=== PATIENT | female | born 1980 | race Caucasian/White ===

== ENCOUNTER → 2023-01-28 09:24 | Outpatient (BNVA) | payer MEDICAID, SELFPAY | PROVIDERS: PCP Internal Medicine; Visit Provider Physician Assistant Surgical ==

== ENCOUNTER → 2023-02-03 08:02 | Outpatient (BNVA) | payer MEDICAID, SELFPAY | PROVIDERS: PCP Internal Medicine; Visit Provider Surgery ==

== ENCOUNTER → 2023-02-18 12:00 | Outpatient (BNVA) | payer OTHER, MEDICAID, SELFPAY | PROVIDERS: PCP Internal Medicine; Visit Provider Counselor Mental Health ==

== ENCOUNTER 2023-03-04 12:56 | Outpatient (REF) | payer MEDICAID, SELFPAY ==
--- NOTE | ~2023-03-04 | XR_ITS ---
EXAMINATION: XR CHEST CLINICAL INFORMATION: Obesity COMPARISON: None available. TECHNIQUE: 2 views of the chest were obtained. FINDINGS: No significant abnormality is noted involving the heart, lungs, mediastinum, bony thorax or soft tissues. XR/XR chest 2V IMPRESSION: No acute disease.
--- NOTE | 2023-03-04 13:15 | ECG_ITS ---
Test Reason : OBESITY Blood Pressure : / mmHG Vent. Rate : 069 BPM Atrial Rate : 069 BPM P-R Int : 180 ms QRS Dur : 086 ms QT Int : 430 ms P-R-T Axes : 052 015 010 degrees QTc Int : 460 ms Normal sinus rhythm Nonspecific ST and T wave abnormality Borderline ECG No previous ECGs available Referred By: Mohit Taylor Electronically Signed By:LEELA VOGEL
[2023-03-04 13:16] LABS: MANUAL DIFF FLAG NO
[2023-03-04 14:52] LABS: Basophils Percent Auto 0.4 % (0-2); Eosinophils Absolute Auto 0.2 X10*3/uL (0.0-0.4); Eosinophils Percent Auto 4.3 % (0-4); Hematocrit 41.2 % (37.0-47.0); Hemoglobin 12.5 g/dl (12.0-16.0); Imm Gran Abs Auto 0.01 X10*3/uL (0.00-0.03); Imm Gran Pct Auto 0.2 % (0.0-0.4); Lymphocytes Absolute Auto 1.6 X10*3/uL (1.2-4.9); Lymphocytes Percent Auto 29.4 % (20-40); Mean Corpuscular HGB Conc 30.3 g/dl (31.0-35.0); Mean Corpuscular Hemoglobin 26.1 pg (27.0-33.0); Mean Platelet Volume 10.9 fL (9.4-12.3); Monocytes Absolute Auto 0.4 X10*3/uL (0.1-1.2); Monocytes Percent Auto 8.1 % (2-11); Neutrophils Absolute Auto 3.1 x10*3/uL (2.0-8.3); Neutrophils Percent Auto 57.6 % (45-73); Platelet Count 167 X10*3/uL (160-400); Red Blood Count 4.79 X10*6/uL (4.20-5.50); Red Cell Distribution Width 12.8 % (11.0-16.0); White Blood Count 5.3 X10*3/uL (4.8-10.8)
[2023-03-04 16:01] LABS: Estimated Average Glucose 94 mg/dL; Hemoglobin A1c % 4.9 %
[2023-03-04 16:15] LABS: Alanine Aminotransferase 13 U/L (0-31); Albumin Level 3.9 g/dL (3.5-5.0); Alkaline Phosphatase 72 U/L (39-117); Anion Gap 9 (12-20); Aspartate Amino Transferase 16 U/L (5-31); Bilirubin Total 0.3 mg/dL (0.0-1.0); Blood Urea Nitrogen 13 mg/dL (9-16); C Reactive Protein 0.33 mg/dL (< or = 0.50); Calcium 8.7 mg/dL (8.4-10.2); Carbon Dioxide 29 mmol/L (22-29); Chloride 105 mmol/L (96-108); Cholesterol 169 mg/dL; Estimated Glomerular Filt Rate > 60; Glucose Random 83 mg/dL (60-115); HDL Cholesterol 49 mg/dL; Iron 60 mcg/dL (30-160); LDL Cholesterol Calculated 109 mg/dl; Percent Iron Saturation 19 % (15-50); Sodium 139 mmol/L (135-145); Total Iron Binding Capacity 310 mcg/dL (228-428); Total Protein 6.6 g/dL (6.5-8.0); Triglycerides 56 mg/dL; Unsaturated Iron Binding 250 ug/dL
[2023-03-04 16:25] LABS: Ferritin 48 ng/mL (10-250); Insulin 9 uU/mL (2-29); TSH reflex Free T4 1.66 uIU/mL (0.32-4.0); Vitamin D 25-OH Total 39.5 ng/mL (>30)
[2023-03-04 17:02] LABS: Folate 14.4 ng/mL (> or = 4.0); Vitamin B12 526 pg/mL (200-900)
[2023-03-08 14:32] LABS: Calcium (PTHI) 9.1 mg/dL (8.6-10.2); PTHI 56 pg/mL (16-77)
[2023-03-09 12:23] LABS: Zinc 63 mcg/dL (60-130)
[2023-03-09 21:24] LABS: Vitamin A 50 mcg/dL (38-98)
[2023-03-11 12:14] LABS: Vitamin B1 16 nmol/L (8-30)
== END 2023-03-04 12:57 | disposition home or self-care (01) ==
LOC: HO.LAB 12:56
PROVIDERS: PCP Internal Medicine; Visit Provider Surgery
DX: E66.9 Obesity, unspecified (principal); Z68.35 Body mass index [BMI] 35.0-35.9, adult; E78.5 Hyperlipidemia, unspecified; F31.9 Bipolar disorder, unspecified; I10 Essential (primary) hypertension
CPT/HCPCS: 36415; 71046; 80053; 80061; 82306; 82607; 82728; 82746; 83036; 83525; 83540; 83970; 84425; 84443; 84590; 84630; 85025; 86140; 93005; 99211

== ENCOUNTER 2023-03-04 18:42 | Outpatient (REF) | payer MEDICAID, SELFPAY ==
[2023-03-05 16:58] LABS: H Pylori Breath Test Negative (Negative)
== END 2023-03-04 18:43 | disposition home or self-care (01) ==
LOC: HO.LNP 18:42
PROVIDERS: Visit Provider Surgery
DX: E66.9 Obesity, unspecified (principal); Z68.35 Body mass index [BMI] 35.0-35.9, adult
CPT/HCPCS: 83013

== ENCOUNTER → 2023-03-12 11:36 | Outpatient (BNVA) | payer MEDICAID, SELFPAY | PROVIDERS: PCP Internal Medicine; Visit Provider Dietitian, Registered | DX: E66.9 Obesity, unspecified (principal); Z68.34 Body mass index [BMI] 34.0-34.9, adult | CPT/HCPCS: 97802 ==

== ENCOUNTER 2023-04-08 12:13 | Outpatient (AMB) | payer MEDICAID, SELFPAY ==
--- NOTE | 2023-04-08 11:35 | MHC.OFFVISWM ---
Intake VS Expanded 04/08/23 11:42 Height 5 ft 1.5 in Weight 182 lb BMI 33.8 Intake Visit Reasons: VIDEO f/u [facility] An Employee Sponsor Or Advocate And Required: No Allergies No Known Allergies Allergy (Verified 03/04/23 14:40) Medication List - Last Reconciled 04/08/23 by [facility] albuterol sulfate 90 mcg/actuation (Ventolin HFA) 2 puffs inhalation Q4-6H PRN citalopram 40 mg PO BEDTIME lamotrigine (Lamictal) 100 mg PO BID lisinopril 5 mg PO DAILY methadone 100 mg PO DAILY HPI HPI Comments History of Present Illness Details 42 yo female returns for f/u in [facility] pre-op clinic Initial weight on 02/03/23 was 189.8 with a BMI of 35.2 Weight today is 182 pounds with a BMI of 33.8 Weight loss of 7.8 pounds or 4 % TBWL. She feels she is doing ok. She is now used to the plan. Meal plan: 2 Isopure protein shakes (QUARTER scoop in 8oz COLD WATER each) at 8am-10am and 11am-1pm, 1 protein bar (Zone Perfect protein bars) at 2pm-4pm, dinner at 5pm (8 forks of protein and 10 forks of salad/vegetables) AND ONE more protein bar after dinner at 7pm-9pm AND ONE more Isopure shake (QUARTER scoop in 8oz water at 10pm-12am. exercise plan: outdoor bicycle, daily weather permitting, 30-45 minutes, walking 30-45 minutes, States calories is around 300-400 burned [facility] Medical History Back pain Bipolar disorder Hyperlipidemia Hypertension Surgical History Hx of appendectomy Hx of section Hx of colonoscopy Hx of hand surgery Hx of LASIK Hx of melanoma excision Hx of sigmoidoscopy Hx of tonsillectomy Family History Mother Hypertension Father Hypertension High cholesterol Daughter No problems noted. Social History Alcohol intake: never Patient Tobacco Use Status: Current everyday Tobacco user Cigarettes Per Day: 6 Assessment & Plan Assessment & Plan (1) Obesity with body mass index (BMI) of 30.0 to 39.9: Code(s): E66.9 - Obesity, unspecified Plan: change meal plan to : 2 Isopure protein shakes (QUARTER scoop in 8oz COLD WATER each) at 8am-10am and 11am-1pm, 1 protein bar (Zone Perfect protein bars) at 2pm-4pm, dinner at 5pm (8 forks of protein and 10 forks of salad/vegetables) AND 1/2 protein bar after dinner at 8pm-9pm Discussed increasing exercise on bike to double as she is on flat surfaces. Reminded of upcoming appointments' Telehealth Telehealth Location of provider rendering services: practice address Location of patient: address on file Patient Identification confirmed using: Name, : Yes Telehealth method: video Patient verbally consented to treatment: Yes Patient verbally consented to billing insurance company: Yes Patient informed of any privacy concerns related to visit: Yes Minutes spent on Phone/Video with Pt.: 13 Coding Level of Care Code Tele Est Pt Level 3 (51556) Diagnoses Obesity with body mass index (BMI) of 30.0 to 39.9 E66.9 Time Spent (min) 20
[2023-04-08 11:42] VITALS: BMI 33.8
== END 2023-04-08 12:18 | disposition home or self-care (01) ==
LOC: HO.HBS 12:13
PROVIDERS: PCP Internal Medicine; Visit Provider Physician Assistant Surgical
DX: E66.9 Obesity, unspecified (principal)
CPT/HCPCS: 99213

== ENCOUNTER → 2023-04-08 12:13 | Outpatient (BNVA) | payer MEDICAID, SELFPAY | PROVIDERS: PCP Internal Medicine; Visit Provider Physician Assistant Surgical | DX: E66.9 Obesity, unspecified (principal); Z68.33 Body mass index [BMI] 33.0-33.9, adult | CPT/HCPCS: 99213 ==

== ENCOUNTER 2023-04-22 14:25 | Outpatient (AMB) | payer MEDICAID, SELFPAY ==
--- NOTE | 2023-04-22 14:22 | A.OFFVIS_ITS ---
Intake Intake Visit Reasons: VIDEO F/U [facility] Allergies No Known Allergies Allergy (Verified 03/04/23 14:40) HPI Nutrition Presentation Details [employer] weight 189# weight on march 12 186# current weight 182# Reason for consult elevated BMI Diet Assmnt Details went away on vacation to [place], brought her bars and shakes. went out to eat and felt that she was able to find healthy food choices. Is going away on vacation again [facility] . plans to follow the nutrition plan still evening walks every night 30-45 minutes. [facility] online classes: completed, scored well Previous weight loss methods attempted Adipex in 2017 , various self diets, increasing exercise Dietary counseling reduction Diagnosis Nutrition problem #1 overweight/obesity As related to (etiology) #1 excess energy intake and physical inactivity As evidenced by (sign/symptom) #1 high BMI Monitoring/Goals Nutrition problem monitoring total energy intake, level of knowledge/skill, total PRO intake, total CHO intake and weight Outcome progress progressing Learning/Education Readiness to learn good Stages of change action Educational materials provided Yes Most Recent Diabetes Results: Cholesterol 169 mg/dL 03/04/23 HDL Cholesterol 49 mg/dL 03/04/23 Triglycerides 56 mg/dL 03/04/23 Creatinine 0.70 mg/dL (0.5-1.4) 03/04/23 Blood Urea Nitrogen 13 mg/dL (9-16) 03/04/23 Sodium 139 mmol/L (135-145) 03/04/23 Potassium 4.0 mmol/L (3.3-5.1) 03/04/23 Chloride 105 mmol/L (96-108) 03/04/23 Carbon Dioxide 29 mmol/L (22-29) 03/04/23 Calcium 8.7 mg/dL (8.4-10.2) 03/04/23 AST 16 U/L (5-31) 03/04/23 ALT 13 U/L (0-31) 03/04/23 Total Protein 6.6 g/dL (6.5-8.0) 03/04/23 Albumin 3.9 g/dL (3.5-5.0) 03/04/23 [facility] Medical History Back pain Bipolar disorder Hyperlipidemia Hypertension Surgical History Hx of appendectomy Hx of section Hx of colonoscopy Hx of hand surgery Hx of LASIK Hx of melanoma excision Hx of sigmoidoscopy Hx of tonsillectomy Family History Mother Hypertension Father Hypertension High cholesterol Daughter No problems noted. Social History Alcohol intake: never Patient Tobacco Use Status: Current everyday Tobacco user Cigarettes Per Day: 6 Assessment & Plan Assessment & Plan (1) Obesity with body mass index (BMI) of 30.0 to 39.9: Code(s): E66.9 - Obesity, unspecified Patient Instructions: Patient is cleared from a nutrition standpoint for bariatric surgery. Educational requirements have been completed. Reviewed vitamin supplementation and commitment to protein shake for several months post surgery. Encouraged communication with office as needed Telehealth Telehealth Location of provider rendering services: practice address Location of patient: address on file Patient Identification confirmed using: Name, : Yes Telehealth method: video Patient verbally consented to treatment: Yes Patient verbally consented to billing insurance company: Yes Patient informed of any privacy concerns related to visit: Yes Minutes spent on Phone/Video with Pt.: 30 Coding Level of Care Code Nutr Indiv Subseq (25108) Diagnoses Obesity with body mass index (BMI) of 30.0 to 39.9 E66.9 Time Spent (min) 30
== END 2023-04-22 14:46 | disposition home or self-care (01) ==
LOC: HO.HBS 14:25
PROVIDERS: PCP Internal Medicine; Visit Provider Dietitian, Registered
DX: E66.9 Obesity, unspecified (principal)

== ENCOUNTER → 2023-04-22 14:25 | Outpatient (BNVA) | payer MEDICAID, SELFPAY | PROVIDERS: PCP Internal Medicine; Visit Provider Dietitian, Registered | DX: E66.9 Obesity, unspecified (principal); Z71.3 Dietary counseling and surveillance | CPT/HCPCS: 97803 ==

== ENCOUNTER 2023-04-30 08:19 | Outpatient (AMB) | payer MEDICAID, SELFPAY ==
--- NOTE | 2023-04-30 12:43 | MHC.OFFVISWM ---
Intake VS Expanded 04/30/23 12:49 Height 5 ft 1.5 in Weight 178 lb 9 oz BMI 33.2 Body Fat 80.3 Body Fat Percentage 44.9 Free Fat Mass 98.5 Visceral Mass 11.2 Water Mass 72.4 BMR 1,434 Intake Visit Reasons: TV Follow Up [facility] Allergies No Known Allergies Allergy (Verified 03/04/23 14:40) HPI TV Follow Up [facility] HPI Details Start time: 12.34pm, End time: 12.54pm ?I spent 15 minutes speaking with the patient on the phone plus an additional 5 minutes reviewing and updating records for a total of 20 minutes HPI Comments History of Present Illness Details Overall weight loss: 10.9lbs, or 5.74% TBWL Is doing 2 ISO protein shakes (1/4 scoop each in 8oz almond milk), 2 Zone Perfect protein bars, one meal (7 forks of meat and 7 forks of salad or vegetables) Exercise: walking outside and outside biking PFSH Medical History Back pain Bipolar disorder Hyperlipidemia Hypertension Surgical History Hx of appendectomy Hx of section Hx of colonoscopy Hx of hand surgery Hx of LASIK Hx of melanoma excision Hx of sigmoidoscopy Hx of tonsillectomy Family History Mother Hypertension Father Hypertension High cholesterol Daughter No problems noted. Social History Alcohol intake: never Patient Tobacco Use Status: Current everyday Tobacco user Cigarettes Per Day: 6 Assessment & Plan Assessment & Plan (1) Obesity: Comment: in remission Code(s): E66.9 - Obesity, unspecified Plan: 1. Continue same nutritional plan of 2 ISO-1000 protein shakes (1/4 scoop each in 8oz almond milk), 2 Zone Perfect protein bars, one meal (7 forks of meat and 7 forks of salad or vegetables) 2. Exercise: continue walking outside and outside biking for 300 calories per work-out daily 3. Continue to send me weight measurements weekly (2) BMI 33.0-33.9,adult: Code(s): Z68.33 - Body mass index [BMI] 33.0-33.9, adult Telehealth Telehealth Location of provider rendering services: practice address Location of patient: address on file Patient Identification confirmed using: Name, : Yes Telehealth method: voice only Patient verbally consented to treatment: Yes Patient verbally consented to billing insurance company: Yes Patient informed of any privacy concerns related to visit: Yes Minutes spent on Phone/Video with Pt.: 20 Coding Level of Care Code Tele Est Pt Level 3 (11039) Diagnoses Obesity E66.9 BMI 33.0-33.9,adult Z68.33 Time Spent (min) 20
[2023-04-30 12:49] VITALS: BMI 33.2
== END 2023-04-30 12:54 | disposition home or self-care (01) ==
LOC: HO.HBS 08:19
PROVIDERS: PCP Internal Medicine; Visit Provider Surgery
DX: E66.9 Obesity, unspecified (principal); Z68.33 Body mass index [BMI] 33.0-33.9, adult
CPT/HCPCS: 99213

== ENCOUNTER → 2023-04-30 08:19 | Outpatient (BNVA) | payer MEDICAID, SELFPAY | PROVIDERS: PCP Internal Medicine; Visit Provider Surgery ==

== ENCOUNTER 2023-05-05 09:03 | Outpatient (REF) | payer MEDICAID, SELFPAY ==
--- NOTE | ~2023-05-05 | FL_ITS ---
EXAMINATION: XR FLUOROSCOPY UPPER GI WITH AIR CLINICAL INFORMATION: Obesity. COMPARISON: None available. TECHNIQUE: Air-contrast upper GI examination with effervescent crystals, thin and thick barium, and half-inch diameter barium tablet. FINDINGS: There is normal apposition of the vocal cords while saying E. There is normal elevation of the soft palate while saying candy. Patient swallowed thin and thick barium and half-inch diameter barium tablet without difficulty. No nasopharyngeal reflux or tracheal aspiration identified. There is normal esophageal motility. No mucosal abnormality is seen. No persistent stricture is noted. No hiatal hernia is seen. No gastroesophageal reflux was seen including with water siphon test. The stomach demonstrates normal distensibility without abnormal mass or ulceration. There was no delay in gastric emptying. The duodenal bulb and sweep appeared unremarkable. FLUOROSCOPY TIME: 1.6 minutes DOSE AREA PRODUCT: 9.084 Gy-cm2 (mtz-centimeter squared) FL/FL upper GI w air IMPRESSION: Unremarkable examination.
== END 2023-05-05 09:04 | disposition home or self-care (01) ==
LOC: HO.XRAY 09:03
PROVIDERS: PCP Internal Medicine; Visit Provider Surgery
DX: E66.9 Obesity, unspecified (principal); Z68.35 Body mass index [BMI] 35.0-35.9, adult; I10 Essential (primary) hypertension; E78.5 Hyperlipidemia, unspecified; F31.9 Bipolar disorder, unspecified
CPT/HCPCS: 74246

== ENCOUNTER → 2023-05-05 09:05 | Outpatient (BNV) | payer MEDICAID, SELFPAY | PROVIDERS: PCP Internal Medicine; Visit Provider Radiology Diagnostic Radiology | DX: E66.9 Obesity, unspecified (principal); Z68.33 Body mass index [BMI] 33.0-33.9, adult; Z01.818 Encounter for other preprocedural examination | CPT/HCPCS: 74246 ==

== ENCOUNTER 2023-05-11 10:39 | Outpatient (REF) | payer MEDICAID, SELFPAY ==
--- NOTE | ~2023-05-11 | US_ITS ---
EXAMINATION: US COMPLETE ABDOMEN WITH LIVER ELASTOGRAPHY CLINICAL INFORMATION: Obesity. COMPARISON: None available. TECHNIQUE: Real-time imaging of the abdominal viscera. Noninvasive ultrasound liver fibrosis assessment is performed using Jaiden ElastPQ point quantification shear wave elastography (2D-SWE) with a C5-2 MHz transducer. Multiple elastography samples are obtained. FINDINGS: PANCREAS: Normal. The visualized pancreatic head and body are normal in appearance. The remainder of the pancreas is obscured from visualization by the overlying bowel gas. ABDOMINAL AORTA: The proximal, middle, and distal aortic segments are normal in caliber. INFERIOR VENA CAVA: Visualized portions are normal. LIVER: Normal. The liver demonstrates normal size, contour and echogenicity. No focal lesion. There is mild biliary duct dilatation. The right lobe measures 13.4 cm in length. The left lobe measures 9.4 cm in length. Portal flow is towards the liver (hepatopetal). Shear wave liver elastography median stiffness is 1.67 m/s (reference: normal median stiffness is 1.3 m/s or less). IQR/median stiffness to assess sampling precision is 0.11 (reference: good quality data set is IQR/median stiffness of 0.15 or less). GALLBLADDER: Normal. The gallbladder is physiologically distended without evidence of stones, sludge, polyps, wall thickening or pericholecystic fluid. COMMON BILE DUCT: Mildly increased in caliber, measuring 0.8 cm in diameter. RIGHT KIDNEY: Imaging limited by bowel gas. No hydronephrosis. No renal calculi or focal parenchymal lesions. The kidney measures 7.5 cm in maximum dimension. LEFT KIDNEY: Normal. No hydronephrosis. No renal calculi or focal parenchymal lesions. The kidney measures 9.9 cm in maximum dimension. SPLEEN: Normal. The spleen measures 10.0 cm in maximum dimension. FREE FLUID: None. US/US abdomen comp w elastography IMPRESSION: 1. There is mild intrahepatic and extrahepatic biliary ductal dilatation. This could be further evaluated with CT or MRI/MRCP, if clinically indicated. 2. Liver elastography: In the absence of other known clinical signs, measurements rule out compensated advanced chronic liver disease. If there are known clinical signs, further testing may be needed for confirmation. REFERENCE: Society of Radiologists in Ultrasound Liver Stiffness Thresholds (2020): LIVER STIFFNESS THRESHOLDS: *Liver Stiffness equal or less than 1.3 m/s: High probability of being normal. *Liver Stiffness less than 1.7 m/s: In the absence of other known clinical signs, rules out compensated advanced chronic liver disease. *Liver Stiffness 1.7-2.1 m/s: Suggestive of compensated advanced chronic liver disease but need further test for confirmation. *Liver Stiffness over 2.1 m/s: Rules in compensated advanced chronic liver disease. *Liver Stiffness over 2.4 m/s: Suggestive of clinically significant portal hypertension. QUALITY OF DATA SET: *IQR/Median value equal or less than 0.15 implies a quality data set. *IQR/Median value over 0.15 implies a poor quality data set. SIGNIFICANT CHANGE FROM PRIOR EXAM: Significant change if liver stiffness measurement is 10% or greater from prior exam. OTHER CONSIDERATIONS: The stage of liver fibrosis may be overestimated in the setting of acute hepatitis, liver inflammation, elevated liver function tests, hepatic vascular congestion, obstructive cholestasis, non-fasting state, and infiltrative diseases such as amyloidosis and lymphoma. In some patients with NAFLD, the liver stiffness thresholds for compensated advanced chronic liver disease may be lower. In causes other than viral hepatitis and NAFLD, liver stiffness thresholds are not well established.
== END 2023-05-11 10:40 | disposition home or self-care (01) ==
LOC: HO.US 10:39
PROVIDERS: PCP Internal Medicine; Visit Provider Surgery
DX: E66.9 Obesity, unspecified (principal); I10 Essential (primary) hypertension; E78.5 Hyperlipidemia, unspecified; F31.9 Bipolar disorder, unspecified; Z68.35 Body mass index [BMI] 35.0-35.9, adult
CPT/HCPCS: 76705; 76981

== ENCOUNTER 2023-05-28 08:07 | Outpatient (AMB) | payer MEDICAID, SELFPAY ==
--- NOTE | 2023-05-28 09:07 | MHC.OFFVISWM ---
Intake VS Expanded 05/28/23 09:18 Height 5 ft 1.5 in Weight 174 lb 5 oz BMI 32.4 Body Fat 76.7 Body Fat Percentage 44 Free Fat Mass 97.9 Visceral Mass 10.8 Water Mass 71.5 BMR 1,418 Intake Visit Reasons: TV Follow Up [facility] Allergies No Known Allergies Allergy (Verified 03/04/23 14:40) HPI TV Follow Up [facility] HPI Details Start time: 9.04am, End time: 9.24am ?I spent 15 minutes speaking with the patient on the phone plus an additional 5 minutes reviewing and updating records for a total of 20 minutes HPI Comments History of Present Illness Details Overall weight loss: 15.3lbs, or 8.06% TBWL Is doing 3 ISO-100 protein shakes (1/4 scoop in 8oz almond milk), 2 Zone Perfect protein bars and one meal (7 forks of protein and 7 forks of salad or vegetables) Exercise: does outside biking x3/week and walks outside daily for 2000 calories PFSH Medical History Back pain Bipolar disorder Hyperlipidemia Hypertension Surgical History Hx of appendectomy Hx of section Hx of colonoscopy Hx of hand surgery Hx of LASIK Hx of melanoma excision Hx of sigmoidoscopy Hx of tonsillectomy Family History Mother Hypertension Father Hypertension High cholesterol Daughter No problems noted. Social History Alcohol intake: never Patient Tobacco Use Status: Current everyday Tobacco user Cigarettes Per Day: 6 Assessment & Plan Assessment & Plan (1) Obesity: Comment: in remission Code(s): E66.9 - Obesity, unspecified Plan: 1. Plan for lap sleeve gastrectomy including upper GI endoscopy. All tests has been completed and reviewed and the patient is cleared for the surgery. ?If diaphragmatic or ventral hernias are present at time of surgery, these will be repaired laparoscopically as well. Risks and complications were discussed in detail including possible conversion to an open procedure, anastomotic leak, bleeding requiring transfusion, small bowel obstruction, , DVT and pulmonary embolism, cardiac, or pulmonary complications, as group home complications such as anastomotic ulcer, insufficient weight loss and vitamin deficiencies. I emphasized the importance of close follow-up, adherence to instructions and good communication. So far she has proven to be an excellent communicator and very compliant with all our directions accomplishing a great weight loss. I believe that she is an excellent candidate and she is ready. 2. Continue same nutritional plan of 3 ISO-100 protein shakes (1/4 scoop in 8oz almond milk), 2 Zone Perfect protein bars and one meal (7 forks of protein and 7 forks of salad or vegetables) 3. Exercise: continue outside biking x3/week and walks outside daily for 2000 calories 4. Continue to send weight measurements weekly on Sundays (2) BMI 32.0-32.9,adult: Code(s): Z68.32 - Body mass index [BMI] 32.0-32.9, adult Telehealth Telehealth Location of provider rendering services: practice address Location of patient: address on file Patient Identification confirmed using: Name, : Yes Telehealth method: voice only Patient verbally consented to treatment: Yes Patient verbally consented to billing insurance company: Yes Patient informed of any privacy concerns related to visit: Yes Minutes spent on Phone/Video with Pt.: 20 Coding Level of Care Code Tele Est Pt Level 3 (32858) Diagnoses Obesity E66.9 BMI 32.0-32.9,adult Z68.32 Time Spent (min) 20
[2023-05-28 09:18] VITALS: BMI 32.4
== END 2023-05-28 09:25 | disposition home or self-care (01) ==
LOC: HO.HBS 08:07
PROVIDERS: PCP Internal Medicine; Visit Provider Surgery
DX: E66.9 Obesity, unspecified (principal); Z68.32 Body mass index [BMI] 32.0-32.9, adult
CPT/HCPCS: 99213

== ENCOUNTER → 2023-05-28 08:07 | Outpatient (BNVA) | payer MEDICAID, SELFPAY | PROVIDERS: PCP Internal Medicine; Visit Provider Surgery ==

== ENCOUNTER 2023-06-09 12:31 | Outpatient (REF) | payer MEDICAID, SELFPAY ==
[2023-06-09 12:50] LABS: MANUAL DIFF FLAG NO
[2023-06-09 13:24] LABS: Basophils Percent Auto 0.4 % (0-2); Eosinophils Absolute Auto 0.1 X10*3/uL (0.0-0.4); Hematocrit 42.1 % (37.0-47.0); Hemoglobin 12.9 g/dl (12.0-16.0); Imm Gran Abs Auto 0.01 X10*3/uL (0.00-0.03); Imm Gran Pct Auto 0.2 % (0.0-0.4); Lymphocytes Absolute Auto 1.4 X10*3/uL (1.2-4.9); Lymphocytes Percent Auto 26.1 % (20-40); Mean Corpuscular HGB Conc 30.6 g/dl (31.0-35.0); Mean Corpuscular Hemoglobin 26.3 pg (27.0-33.0); Mean Corpuscular Volume 85.7 fL (80.0-98.0); Mean Platelet Volume 11.1 fL (9.4-12.3); Monocytes Absolute Auto 0.4 X10*3/uL (0.1-1.2); Monocytes Percent Auto 6.4 % (2-11); Neutrophils Absolute Auto 3.6 x10*3/uL (2.0-8.3); Neutrophils Percent Auto 64.9 % (45-73); Platelet Count 186 X10*3/uL (160-400); Red Blood Count 4.91 X10*6/uL (4.20-5.50); Red Cell Distribution Width 12.7 % (11.0-16.0); White Blood Count 5.5 X10*3/uL (4.8-10.8)
[2023-06-09 13:31] LABS: Prothrombin Time 12.2 SEC (11.1-13.3)
[2023-06-09 13:33] LABS: Partial Thromboplastin Time 34.9 SEC (26.0-36.4)
[2023-06-09 13:54] LABS: Estimated Average Glucose 100 mg/dL; Hemoglobin A1c % 5.1 % (<6.0)
[2023-06-09 14:25] LABS: Alanine Aminotransferase 11 U/L (0-31); Albumin Level 4.3 g/dL (3.5-5.0); Alkaline Phosphatase 76 U/L (39-117); Anion Gap 11 (12-20); Aspartate Amino Transferase 15 U/L (5-31); Bilirubin Total 0.3 mg/dL (0.0-1.0); Blood Urea Nitrogen 17 mg/dL (9-16); C Reactive Protein 0.26 mg/dL (< or = 0.50); Calcium 9.6 mg/dL (8.4-10.2); Carbon Dioxide 31 mmol/L (22-29); Chloride 104 mmol/L (96-108); Cholesterol 169 mg/dL (<200); Estimated Glomerular Filt Rate > 60; Glucose Random 79 mg/dL (60-115); HDL Cholesterol 42 mg/dL (>40); LDL Cholesterol Calculated 112 mg/dL (<100); Potassium 4.8 mmol/L (3.3-5.1); Sodium 141 mmol/L (135-145); Total Protein 7.3 g/dL (6.5-8.0); Triglycerides 78 mg/dL (<150)
[2023-06-09 14:35] LABS: Insulin 14 uU/mL (2-29); TSH reflex Free T4 2.02 uIU/mL (0.32-4.0)
== END 2023-06-09 12:32 | disposition home or self-care (01) ==
LOC: HO.LAB 12:31
PROVIDERS: PCP Internal Medicine; Visit Provider Surgery
DX: E66.9 Obesity, unspecified (principal); Z68.32 Body mass index [BMI] 32.0-32.9, adult
CPT/HCPCS: 36415; 80053; 80061; 83036; 83525; 84443; 85025; 85610; 85730; 86140; 86850; 86870; 86900; 86901

== ENCOUNTER 2023-06-11 08:07 | Outpatient (AMB) | payer MEDICAID, SELFPAY ==
--- NOTE | 2023-06-11 08:50 | A.OFFVIS_ITS ---
Intake VS Expanded 06/11/23 08:55 Height 5 ft 1.5 in Weight 171 lb 2 oz BMI 31.8 Body Fat 74.1 Body Fat Percentage 43.3 Free Fat Mass 97.2 Visceral Mass 10.4 Water Mass 70.7 BMR 1,398 Intake Visit Reasons: TV Pre Op LSG 06/15/23 Allergies No Known Allergies Allergy (Verified 03/04/23 14:40) HPI TV Pre Op LSG 06/15/23 HPI Details Start time: 8.40am, End time: 9.05am ?I spent 20 minutes speaking with the patient on the phone plus an additional 5 minutes reviewing and updating records for a total of 25 minutes [facility] Medical History Back pain Bipolar disorder Hyperlipidemia Hypertension Surgical History Hx of appendectomy Hx of section Hx of colonoscopy Hx of hand surgery Hx of LASIK Hx of melanoma excision Hx of sigmoidoscopy Hx of tonsillectomy Family History Mother Hypertension Father Hypertension High cholesterol Daughter No problems noted. Social History Alcohol intake: never Patient Tobacco Use Status: Current everyday Tobacco user Cigarettes Per Day: 6 Assessment & Plan Assessment & Plan (1) Obesity: Comment: in remission Code(s): E66.9 - Obesity, unspecified Plan: 1. Plan for lap sleeve gastrectomy including upper GI endoscopy. All tests has been completed and reviewed and the patient is cleared for the surgery. ?If diaphragmatic or ventral hernias are present at time of surgery, these will be repaired laparoscopically as well. Risks and complications were discussed in detail including possible conversion to an open procedure, anastomotic leak, bleeding requiring transfusion, small bowel obstruction, , DVT and pulmonary embolism, cardiac, or pulmonary complications, as long term care phlebotomist complications such as anastomotic ulcer, insufficient weight loss and vitamin deficiencies. I emphasized the importance of close follow-up, adherence to instructions and good communication. So far she has proven to be an excellent communicator and very compliant with all our directions accomplishing a great weight loss. I believe that she is an excellent candidate and she is ready. 2. Preop prescriptions were provided and explained the purpose of each one. Need to be purchased preop. Start Pantoprazole now as you get it from the pharmacy, 1 pill per day. Sucralfate and Zofran are for after surgery as needed. 3. Bowel prep: please do 7 packets ?of Miralax mixing each one with a an 8oz glass of water, crystal light, gatorade zero, or propel ?on 06/13/23 and the same amount on 06/14/23. Continue the protein shakes during? the bowel prep. 4. Needs to purchase 1oz medicine cups . 5. Needs to purchase Children's liquid Tylenol for postop pain control. 6. Avoid aspirin, motrin, Advil, Aleve, Ibuprofen, Naproxyn. Tylenol is OK. 7. She needs to purchase the Celebrate 4:1 protein shakes from the hospital's gift [facility]. 8. Importance of adherence to postop folllow-up and recommendations was underscored and she understands that. 10. Continue to avoid food and bars and continue with 5 ISO-100 protein shakes (HALF scoop EACH in 8oz almond milk) at 9am-11am, 12pm-2pm, 3pm-5pm, 6pm-8pm and at 9pm-11pm 11. No soups, broths or V8 12. The patient's?medical?history has been reviewed and they are considered low risk for post op DVT and therefore DVT prophylaxis is not considered necessary. Travel after surgery was reviewed. The patient has not disclosed any travel plans during the first 30 days after surgery and they have been advised that within the first 30 days after surgery any bus, plane, train or car travel over 2 hours in duration is contraindicated due to the possibility of developing blood clots from immobility. Any travel, needs to include periods of ambulation of 10 minutes in duration every 2 hours.? Patient was instructed to discuss any plans for travel during this period with their bariatric surgeon.? 13. Please take at the day of surgery the following medications: LISINOPRIL and METHADONE with a small sip of water 14. Stop any control pills and don't use them for one month after surgery 15. Absolutely no smoking or vaping, or marijuana until the surgery and for at least the first 4 weeks. Only nicotine patches are allowed. 16. Send me weight measurements on and then on the day of surgery before you go to the hospital. 17. Avoid any steroids by mouth for any reason. Let me know if someone prescribes them to you 18. Check your blood pressure daily and let me know if it drops below 120/70 because we will need to adjust the blood pressure medications. The best time to check your blood pressure is either at night or early in the morning. (2) BMI 31.0-31.9,adult: Code(s): Z68.31 - Body mass index [BMI] 31.0-31.9, adult (3) Hypertension: Code(s): I10 - Essential (primary) hypertension (4) Hyperlipidemia: Code(s): E78.5 - Hyperlipidemia, unspecified Telehealth Telehealth Location of provider rendering services: practice address Location of patient: address on file Patient Identification confirmed using: Name, : Yes Telehealth method: voice only Patient verbally consented to treatment: Yes Patient verbally consented to billing insurance company: Yes Patient informed of any privacy concerns related to visit: Yes Minutes spent on Phone/Video with Pt.: 25 Coding Level of Care Code Tele Est Pt Level 3 (96817) Diagnoses Obesity E66.9 BMI 31.0-31.9,adult Z68.31 Hypertension I10 Hyperlipidemia E78.5 Time Spent (min) 25
[2023-06-11 08:55] VITALS: BMI 31.8
== END 2023-06-11 09:06 | disposition home or self-care (01) ==
PROVIDERS: PCP Internal Medicine; Visit Provider Surgery
DX: E66.9 Obesity, unspecified (principal); Z68.31 Body mass index [BMI] 31.0-31.9, adult; I10 Essential (primary) hypertension; E78.5 Hyperlipidemia, unspecified
CPT/HCPCS: 99213

== ENCOUNTER → 2023-06-11 08:07 | Outpatient (BNVA) | payer MEDICAID, SELFPAY | PROVIDERS: PCP Internal Medicine; Visit Provider Surgery ==

== ENCOUNTER 2023-06-15 12:28 | Inpatient (IN) | payer MEDICAID, SELFPAY ==
[2023-06-11 09:39] VITALS: BMI 32.3
--- NOTE | 2023-06-11 22:55 | MHC.SHP ---
Pre-Procedural Eval Section A Date of Service: 06/11/23 The patient is an INPATIENT: Yes The History & Physical has been completed within 30 days and I have reviewed it.: Yes Section B Chief Complaint: Obesity, unspecified Relevant Family History (Specify if Yes): No Relevant Social History: None Present Medications: None Medical History: No relevant PMH History of Previous Operations: No relevant previous surgery Allergies: Allergies Allergy/AdvReac Type Severity Reaction Status Date / Time No Known Allergies Allergy Verified 03/04/23 14:40 Review of Systems Sugical H&P ROS: Negative: Constitution, Cardiovascular, Respiratory, Neurological, Psychiatric, Hem-Onc, Allergic/Immunologic, Gastrointestinal, Genitourinary, Musculoskeletal, Integumentary, Endocrine and Eyes/Ears/Nose/Throat Exam Surgical H&P Exam: Normal: HEENT, Normal: Heart, Normal: Lungs, Normal: Extremities, Normal: Abdomen, Normal: Skin and Normal: Neurological Plan Diagnosis/Plan: Unchanged I have reviewed the history and physical and performed a pertinent physical examination on my patient. No changes have occurred unless specified. Time Spent With Patient Time: Total time managing care of this patient today ____ minutes.
--- NOTE | 2023-06-14 08:23 | HO.ANESPROP2 ---
Documented by User: Charlene Aaron NP 06/14/23 08:24 HPI - Anesthesia Eval Consult details Narrative: 42yo F for Gastrectomy Sleeve,EGD,poss diaphragmatic hernia,poss ventral hernia, poss open, Methadone daily PMFSH Active Problems Active Problems: All Active Problems (Updated 06/11/23 @ 08:58 by Mohit Taylor MD) BMI 31.0-31.9,adult (Acute) BMI 32.0-32.9,adult (Acute) BMI 33.0-33.9,adult (Acute) Obesity with body mass index (BMI) of 30.0 to 39.9 (Acute) BMI 34.0-34.9,adult (Acute) Bipolar disorder current episode depressed (Acute) Hyperlipidemia (Acute) Back pain (Acute) Bipolar disorder (Acute) Hypertension (Acute) BMI 35.0-35.9,adult (Acute) Obesity (Acute) Opioid abuse (Acute) Past Medical History Medical History Back pain Bipolar disorder Hyperlipidemia Hypertension Family History Family History Mother Hypertension Father Hypertension High cholesterol Daughter No problems noted. Surgical History Surgical History Hx of appendectomy Hx of section Hx of colonoscopy Hx of hand surgery Hx of LASIK Hx of melanoma excision Hx of sigmoidoscopy Hx of tonsillectomy Social History Social History Are you a primary home care manager rn to a significant other at home: No Do you presently have visiting nurse or other home services: No Alcohol intake: never Patient Tobacco Use Status: Never used Tobacco Cigarettes Per Day: 6 Use of substances other than those prescribed or required for medical reasons: No Have you been hit, kicked, punched, or otherwise hurt by someone within the past year? If so, by whom?: No Are you DNR?: No Advance Directives: No Advance Directives Information Provided: No Advance Directives on File: No Recently lost weight without trying: No Eating poorly because of decreased appetite: No Nutrition Risks: No Nutritional Risk Patient : No : No Poor oral hygiene: Yes (partial upper denture) Meds Allergies Allergy/AdvReac Type Severity Reaction Status Date / Time No Known Allergies Allergy Verified 03/04/23 14:40 Home Medications Medication Instructions Recorded Confirmed Last Taken Type citalopram 40 mg tablet 40 mg PO DAILY 01/28/23 06/11/23 Unknown History lamotrigine 100 mg tablet 100 mg PO BID 01/28/23 06/11/23 Unknown History (Lamictal) lisinopril 5 mg tablet 5 mg PO DAILY 01/28/23 06/11/23 06/15/23 History methadone 40 mg soluble tablet 100 mg PO DAILY 02/03/23 06/11/23 06/15/23 History albuterol sulfate 90 mcg/actuation 2 puff inhalation Q4-6H PRN 04/08/23 06/11/23 Unknown History aerosol inhaler (Ventolin HFA) Shortness Of Breath phentermine 37.5 mg tablet 37.5 mg PO DAILY 06/11/23 06/11/23 Unknown History Exam Exam Date and Time: June 14, 2023822 Height,Weight and Vital Signs: Height 5 ft 1 in Weight 77.564 kg Pertinent Lab Results Pertinent Lab Results: Laboratory Tests 06/09/23 12:38 Blood Type A Negative Antibody Screen POSITIVE Antibody Identification Anti-D Laboratory Tests 06/09/23 12:48 WBC 5.5 Hgb 12.9 Hct 42.1 Plt Count 186 Sodium 141 Potassium 4.8 Chloride 104 Carbon Dioxide 31 H BUN 17 H Creatinine 0.80 Narrative Narrative: EKG 02/2023 Vent. Rate : 069 BPM Atrial Rate : 069 BPM P-R Int : 180 ms QRS Dur : 086 ms QT Int : 430 ms P-R-T Axes : 052 015 010 degrees QTc Int : 460 ms Normal sinus rhythm Nonspecific ST and T wave abnormality Borderline ECG No previous ECGs available Assessment and Plan Assessment Anesthesia Assessment: Chart Reviewed Documented by User: Yeimi Calderón MD 06/15/23 13:08 [facility] Past Medical History Medical History Back pain Bipolar disorder Hyperlipidemia Hypertension Family History Family History Mother Hypertension Father Hypertension High cholesterol Daughter No problems noted. Family history of problems with anesthesia: No Surgical History Surgical History Hx of appendectomy Hx of section Hx of colonoscopy Hx of hand surgery Hx of LASIK Hx of melanoma excision Hx of sigmoidoscopy Hx of tonsillectomy History of Problems with Anesthesia: No Social History Social History Are you a primary home care manager rn to a significant other at home: No Do you presently have visiting nurse or other home services: No Alcohol intake: never Patient Tobacco Use Status: Never used Tobacco Cigarettes Per Day: 6 Use of substances other than those prescribed or required for medical reasons: No Have you been hit, kicked, punched, or otherwise hurt by someone within the past year? If so, by whom?: No Are you DNR?: No Advance Directives: No Advance Directives Information Provided: No Advance Directives on File: No Recently lost weight without trying: No Eating poorly because of decreased appetite: No Nutrition Risks: No Nutritional Risk Patient : No : No Poor oral hygiene: Yes (partial upper denture) Meds Allergies Allergy/AdvReac Type Severity Reaction Status Date / Time No Known Allergies Allergy Verified 03/04/23 14:40 Home Medications Medication Instructions Recorded Confirmed Last Taken Type citalopram 40 mg tablet 40 mg PO DAILY 01/28/23 06/11/23 Unknown History lamotrigine 100 mg tablet 100 mg PO BID 01/28/23 06/11/23 Unknown History (Lamictal) lisinopril 5 mg tablet 5 mg PO DAILY 01/28/23 06/11/23 06/15/23 History methadone 40 mg soluble tablet 100 mg PO DAILY 02/03/23 06/11/23 06/15/23 History albuterol sulfate 90 mcg/actuation 2 puff inhalation Q4-6H PRN 04/08/23 06/11/23 Unknown History aerosol inhaler (Ventolin HFA) Shortness Of Breath phentermine 37.5 mg tablet 37.5 mg PO DAILY 09/29/23 09/29/23 Unknown History Exam Airway Mallampati Class: II TM Dist: >3cm Neck ROM: Full Assessment and Plan Assessment Anesthesia Assessment: Anesthesia Plan Discussed Final Anesthetic Review Family History of Problems with Anesthesia: No History of Problems with Anesthesia: No NPO: Yes ASA Class: II Final Preanesthetic Review: No Changes in Pt Med Stat, Meds/Allgs Chart Reviewed, Consent Obtained/Reviewed and Anes Risks/Benef Reviewed Patient Risk: Intermediate Procedure Risk: Intermediate Anesthetic Plan Anesthetic Plan: GA Disposition: Standard PACU
[2023-06-15] VITALS (18 sets, daily range): BP systolic 122–143; BP diastolic 63–88; PULSE 78–98; RESP 12–19; TEMP 36–36.9; O2SAT 96–100; BMI 32.1
[2023-06-15] MEDS: Lactated Ringers 1,000 ML 999 ML IV ×2 (12:24→12:37)
[2023-06-15] MEDS: Aprepitant 32 MG/4.4 ML VIAL IVPUSH (12:36)
[2023-06-15 12:45] LABS: UPreg QC Valid YES; Urine Pregnancy NEGATIVE (NEGATIVE)
--- NOTE | 2023-06-15 13:06 | P.BOP_ITS ---
Brief Operative Note Date of Service: 06/15/23 Pre-op diagnosis: Severe obesity with comorbidities (see below) Post-op diagnosis: same (& congenital abdominal adhesions) Procedure: INITIAL PATIENT BMI ON PRESENTATION AT OUR OFFICE: 35.3 kg/m2 LAST BMI BEFORE SURGERY: 32.3 kg/m2 COMORBIDITIES: hypertension, depression, anxiety, history of opioid abuse, hyperlipidemia, liver fibrosis ?The patient presented to the Weight Management Program with significant obesity that was negatively impacting the patient's comorbidities as listed above.? The program is a phased program with a special focus on preoperative medical weight management to promote substantial weight loss and prepare the patients for the second phase of the program: bariatric surgery. The patient participated in an intensive weekly lifestyle ?intervention and exercise program during which the patient ?has lost between the initial office visit and the last preoperative visit 18.7lbs, or 9.9% of initial actual body weight. It was deemed appropriate for the patient to now have bariatric surgery. In light of the current Covid-19 pandemic and the well documented strong association of obesity and increased risk of worse outcomes if infected with Covid-19 (REFERENCES: https://pubmed.ncbi.nlm.nih.gov/49614380/ ,? https://pubmed.ncbi.nlm.nih.gov/41195418/ ), any delay in undergoing bariatric surgery may lead to the patient's worsening health condition and increased?risk of more severe Covid-19 disease if infected. In addition a recent?study from [facility] published in [facility] on 09/08/2021 ([email or web address]) found that, among patients with obesity, substantial weight loss achieved with surgery was associated with improved outcomes of COVID-19 infection. The findings suggest that obesity can be a modifiable risk factor for the severity of COVID- 19 infection. In addition, the patient met the BMI-criteria for bariatric surgery based on the BMI on initial presentation. The patient should not be penalized for achieving such weight loss because ?it is not sustainable long-term without surgical intervention and it was achieved in preparation for bariatric surgery ?under my direction and based on my published research ([email or web address]).[email or web address] and? https://www.soard.org/article/D9604-2991(42)81235-X/pdf ) ?that a 10% preoperative weight loss improves long-term weight loss after surgery and reduces perioperative complications.? Insurance carriers such as [facility] have endor sed my recommendations ?and have included in their policies criteria to include a 10% preoperative weight loss requirement. PROCEDURE: Esophago-gastroscopy,laparoscopic lysis of adhesions, laparoscopic sleeve gastrectomy and laparoscopic gastropexy INDICATIONS: This is a 42 year-old female who was electively scheduled for laparoscopic, possibly open sleeve gastrectomy. The risks and complications of the procedure were discussed with the patient in advance, particularly the possibility of ; pulmonary embolism; staple line leak; bleeding; GERD; cardiac, pulmonary, or renal complications; as well as long-term problems such as insufficient weight loss, vitamin deficiency, strictures, or ulcers. The patient understood all the risks, and was in agreement to proceed with surgery. DESCRIPTION OF PROCEDURE: After informed consent was obtained from the patient, the patient was given preoperative antibiotics, and was transferred to the operating room. After successful induction of general anesthesia, pneumatic compression devices were placed on both lower extremities. An upper endoscopy was performed next. The oropharynx and esophagus appeared to be within normal limits. There was no diaphragmatic hernia present consistent with the findings of the preoperative upper GI. The stomach was entered. Then after all fluid and air were suctioned and the stomach was fully decompressed, the scope was withdrawn and secured in the mid esophagus. The patient was then prepped and draped in the usual sterile manner, and abdominal access was established at the right upper quadrant with the Halle technique. A 12 mm blunt port was inserted, and the abdomen was insufflated with CO2 to a pressure of 15 mmHg. Under direct visualization, additional ports were placed, specifically two 5 mm Versi-step ports to the left upper quadrant, and a 5 mm Versi-Step port to the right upper quadrant. 1% lidocaine plain was used to infiltrate all port sites as well as all fascia defects. Following that, the patient was placed in a steep reverse Trendelenburg position. An additional 5 mm port was placed to the right flank for the Mediflex retractor that was used to retract the left lobe of the liver. The gastro-esophageal fat pad was opened with the ultrasonic device (Thunderbeat, Olympus) and the anterior esophagus and hiatus were exposed. The angle of His was opened with the ultrasonic device the fundus of the stomach from any diaphragmatic and splenic attachments. I then opened the gastrocolic ligament between the transverse colon and the greater curvature of the stomach with the ultrasonic device to enter the lesser sac and facilitate the ligation of the short gastric vessels. I started at a mid-point along the greater curvature and using the Thunderbeat, all short gas tric vessels were divided all the way to the angle of His until the left lg was completely dissected at its entirety. I then divided the gastro-colic ligament distally to a distance of about 3-4 cm proximal to the esophagus. There were extensive congenital adhesions between the pancreas and posterior gastric wall. Those were lysed completely with the ultrasonic device. Adhesiolysis took approximately 45 min to complete. The stomach was then divided transversely with two Endo CLOTILDE-45 purple and four CLOTILDE-60 articulating purple loads using the SIGNIA stapler and loads. Every effort was made that the gastric sleeve had a tubular shape and an even caliber throughout. Once the sleeve resection was completed, the staple line of the gastric sleeve was reinforced with Hemoclips. The resected stomach was retrieved without difficulty from the Halle port. A gastropexy was then performed in order to prevent postoperative GERD and partial gastric volvulus. Several interrupted 2.0 Surgidac sutures were placed between the sleeve's staple line and the previously divided greater omentum and gastro-colic ligament using the Endo-Stitch device. ?An upper endoscopy was performed. There was no narrowing at the GE junction. The scope was easily advanced all the way to the pylorus which was clearly visualized. There was no narrowing anywhere and the sleeve's caliber was even throughout. The sleeve's staple line was inspected and there was no evidence of ischemia, bleeding or dehiscence. At that point the gastroscope was withdrawn from the patient?s mouth while we were decompressing the bowel and the stomach from any remaining air. I looked into the lesser sac to see how the sleeve was situating and it was situating well. There was no bleeding from the staple line, spleen, or short gastric vessels. The Mediflex retractor was removed, and the undersurface of the liver was inspected and there was no bleeding. The patient was placed in supine position. I closed the fascial defect of the 12 mm port site with a figure of eight #1 Polysorb suture. Then 30cc Ropivacaine plain with 10 mg of Dexamethasone were used to infiltrate the fascial closure as well as all skin incisions. A total of 7ml Zynrelef was applied in the Halle wound. At this point, the abdomen was deflated, all ports were removed under direct vision, and no bleeding was noted from any of the port sites. The skin incisions were irrigated with saline and were closed with 4-0 absorbable monofilament sutures. Steri-Strips and OpSites were used to cover all incisions. The patient was extubated and was transferred in stable condition to the recovery room for further care. I was present and performed all joshi parts of the procedure. Celso was the first calender worker. There were no residents to assist with this case. Rubens Taylor MD, PhD, FACS Surgeon: Mohit Taylor MD Anesthesia: GETA, local and other (TAP block and 7ml Zynrelef) Was an Disaster Response Director used for this Procedure?: Yes Disaster Response Director: Sury Houston Estimated blood loss (mL): 10 Urine output (mL): 2,200 (No Trevino to record output) Pathology: other (Stomach) Condition: stable Disposition: PACU
--- NOTE | 2023-06-15 13:10 | P.PNGS_ITS ---
Subjective Subjective Date of Service: 06/15/23 Interval history: Feels well. Mild incisional pain. She is tolerating phase 1 bariatric diet Physical Exam 2 Vital Signs: Vital Signs: Last Vital Signs Temp 97.2 F 06/15/23 12:09 Pulse 78 06/15/23 12:09 Resp 18 06/15/23 12:09 BP 125/63 06/15/23 12:09 Pulse Ox 97 06/15/23 12:09 O2 Del Method Room Air 06/15/23 12:09 BMI result Body Mass Index 32.1 GI: Inspection: Yes normal to inspection, Yes incision (clean, dry and intact) and Yes obesity Palpation (GI): Soft to palpation Extrem: Right lower extremity: normal to inspection (no calf tenderness) L eft lower extremity: normal to inspection (no calf tenderness) Objective Data Active Medications Hydromorphone HCl (Hydromorphone Hcl 0.5 Mg/0.5 Ml Syringe) 0.5 mg IVPUSH Q5M PRN; Protocol PRN Reason: Pain, Severe (Pain Scale 7-10) Lactated Ringer's (Lr) 1,000 mls @ 100 mls/hr IVCONT .Q10H NIC Lactated Ringer's (Lr) 1,000 mls @ 999 mls/hr IV .Q1H1M NIC Stop: 06/15/23 14:00 Last Admin: 06/15/23 12:37 Dose: 999 mls/hr Documented By: CLINT Ondansetron HCl (Ondansetron Hcl 4 Mg/2 Ml Vial) 4 mg IVPUSH ONCE PRN PRN Reason: Nausea and Vomiting Labs 06/15/23 16:59 06/15/23 16:59 Labs: Laboratory Results - last 24 hr 06/09/23 06/15/23 12:38 12:23 Urine Test NEGATIVE Blood Type A Negative Antibody Screen POSITIVE Antibody Identification Anti-D Crossmatch (AHG) See Detail Procedures Date of Service Date of Service: 06/15/23 Progress Note: A&P Assessment and plan (1) Obesity: Status: Acute Assessment and Plan: s/p laparoscopic sleeve gastrectomy, lysis of adhesions, diaphragmatic hernia repair and gastropexy Doing well Will check am labs and if OK the patient will be discharged home (2) BMI 32.0-32.9,adult: Status: Acute (3) Hypertension: Status: Acute (4) Bipolar disorder: Status: Acute (5) Back pain: Status: Acute (6) Hyperlipidemia: Status: Acute (7) Opioid abuse: Status: Acute (8) Liver fibrosis: Status: Acute (9) Anxiety: Status: Acute (10) S/P laparoscopic sleeve gastrectomy: Status: Acute Time Spent With Patient Time: Total time managing care of this patient today ____ minutes. Quality Stroke Does the patient have a stroke diagnosis?: No VTE Prior VTE?: No VTE Risk Level:: Surgical - moderate VTE Device Contraindication: N/A - Device Ordered VTE Drug Contraindication: Treatment Not Indicated
--- NOTE | 2023-06-15 13:48 | PHA.MEDREC ---
Pharmacy Consult ? Medication Reconciliation Pharmacy has completed the medication reconciliation.pharmacy has reviewed med rec done by nursing
[2023-06-15] MEDS: HYDROmorphone HCl 0.5 MG/0.5 ML SYRINGE IVPUSH ×6 (15:56→16:47)
--- NOTE | 2023-06-15 15:56 | PM.DS ---
DS: Providers Provider Date of Service: 06/16/23 Date of admission: 06/15/23 12:28 Primary care physician: Ravi Dyson MD DS: Diagnosis Discharge Diagnosis (1) Obesity: Status: Acute (2) BMI 32.0-32.9,adult: Status: Acute (3) Hypertension: Status: Acute (4) Bipolar disorder: Status: Acute (5) Back pain: Status: Acute (6) Hyperlipidemia: Status: Acute (7) Opioid abuse: Status: Acute (8) Liver fibrosis: Status: Acute (9) Anxiety: Status: Acute DS: Summary Hospital Course Hospital Course: ADMITTING DIAGNOSIS: morbid obesity, HTN, HLD, Bipolar disorder, hx opiod abuse DISCHARGE DIAGNOSIS: same, s/p laparoscopic sleeve gastrectomy PAST SURGICAL HISTORY: appendectomy, section PROCEDURE: upper endoscopy, laparoscopic sleeve gastrectomy DISCHARGE SUMMARY: History of Present Illness: The patient is a 42 year-old woman with a BMI of 35.2 kg/m2 and associated co-morbidities as described above. The patient had extensive work-up, lost 18lbs preoperatively and was electively scheduled for laparoscopic, possible open sleeve gastrectomy and gastropexy. Risks and complications of the surgery were discussed with the patient in advance, particularly the possibility of , pulmonary embolism, anastomotic leak, bleeding, bowel injury, GERD, cardiac, renal or pulmonary complications. The patient understood all the risks and was in agreement with the surgical plan. Hospital Course: The patient underwent an uneventful laparoscopic sleeve gastrectomy with gastropexy on the day of admission. Postoperatively, the patient was transferred to the surgical floor. The patient received IV Acetaminophen and IV dilaudid for pain control. Patient was started on bariatric phase 1 diet POD #0. On postoperative day one, the patient was feeling well without nausea, vomiting, fevers, or tachycardia. The patient had some mild incisional pain and the abdomen was soft. On the morning of postoperative day one, the patient was continued on 1 ounce of water or ice every half hour. During the day, the patient did fairly well, having some incisional pain, but able to ambulate adequately and to tolerate liquids well. Since the patient is doing well, we decided that the patient was ready to be discharged. The patient was given instructions to follow-up with me next week and to call my office for any fever over 101, persistent abdominal pain, nausea, vomiting, GERD, symptoms of DVT such as calf tenderness, or leg swelling, or pulmonary embolism such as chest pain or shortness of breath. The patient was also instructed to drink 40-60 ounces of liquids per day using the 1-ounce cups. The patient had been given prescriptions for Tylenol for pain, Zofran prn for nausea, and pantoprazole and carafate previously. The patient was encouraged to ambulate and use the incentive spirometer. The patient was allowed to shower, but no baths, and encouraged to stay active at home. All of these instructions were given to the patient personally. All questions were answered and the patient understood all instructions, the instructions were also given to the patient in print. Time Spent with Patient Time attestation: Total time managing care of this patient today ____ minutes. Discharge coordination time: Less than 30 minutes Quality: Safe Use of Opioids Does Pt have an Active Cancer Diagnosis on the Problem List?: No Quality: Stroke Does the patient have a stroke diagnosis?: No Physical Exam Vital Signs: Vital Signs: Last Vital Signs Temp 97.2 F 06/15/23 12:09 Pulse 78 06/15/23 12:09 Resp 18 06/15/23 12:09 BP 125/63 06/15/23 12:09 Pulse Ox 97 06/15/23 12:09 O2 Del Method Room Air 06/15/23 12:09 BMI result Body Mass Index 32.1 DS: Data Data Completed and Pending Pending studies at discharge: Pending at discharge 06/15/23 14:43 Surgical [PTH] Routine Labs on day of discharge: Laboratory Results - last 24 hr 06/09/23 06/15/23 12:38 12:23 Urine Test NEGATIVE Blood Type A Negative Antibody Screen POSITIVE Antibody Identification Anti-D Crossmatch (AHG) See Detail Discharge Plan Discharge Anticipated Discharge Date/Time: 06/16/23 10:08 Patient Disposition: Home, Self-Care Discharge Diagnosis: s/p sleeve gastrectomy Referrals: Ravi Dyson MD [Primary Care Provider] - 1 Week Discharge Medications: Continued pantoprazole 40 mg tablet,delayed release (DR/EC) 40 mg PO DAILY Qty: 30 2RF sucralfate 100 mg/mL suspension 10 ml PO BID Qty: 400 2RF ondansetron 4 mg tablet,disintegrating 4 mg PO Q12H Qty: 20 0RF Rx Instructions: Use only if you have nausea citalopram 40 mg tablet 40 mg PO DAILY lamotrigine [Lamictal] 100 mg tablet 100 mg PO BID methadone 40 mg tablet,soluble 100 mg PO DAILY albuterol sulfate [Ventolin HFA] 90 mcg/actuation HFA aerosol inhaler 2 puff inhalation Q4-6H PRN (Reason: Shortness Of Breath) Held lisinopril 5 mg tablet 5 mg PO DAILY Hold Instructions: Resume on 06/17/23. Check your blood pressure every evening and send it to Dr. Taylor. Do not take the medication before you hear from Dr. Taylor. Do not take the medication if your blood pressure is below 120/70 mmHg. Discontinued polyethylene glycol 3350 [Miralax] 17 gram powder in packet 17 g PO DAILY Qty: 14 0RF Rx Instructions: Mix each packet with 8oz of water, Crystal light, or Gatorade zero, or Propel and do 7 packets on 06/13/23 and another 7 packets on 06/15/23 phentermine 37.5 mg Tablet 37.5 mg PO DAILY Rx Instructions: must administer 30 minutes before or 1-2 hours after breakfast Discharge Orders: Discharge Order (Routine); Ordered 06/16/23 Ordered By: Mohit Taylor Activity on Discharge: No heavy lifting Stand Alone Forms: Patient Portal Discharge page Care Plan Goals: weight loss Health Concerns: obesity Plan of Treatment: No tub baths, sex or returning to work until discussed at first post op appointment. No exercise, alcohol, tobacco or illegal drug use. Continue to use incentive spirometer hourly while awake. Walk in home for 5- 10 minutes every 2 hours during the first week. Continue phase 1 diet today and start phase 2 diet tomorrow morning. Follow all instructions in the bariatric handbook and call with any questions. 1. Please call your doctor or come back to the emergency room should any new symptoms arise. 2. You will receive a courtesy call from [facility] 24-48 hours after discharge. 3. Activity: abstain from alcohol, practice limited stair climbing, no bending, no driving, no exercise, no illicit substances, no lifting, no sex, no tub bath, no work. 4. Diet: continue as discussed with bariatric team.. 5. Dressing Change/Wound Care: Do not change or remove surgical dressings unless they are wet or soiled. 6. Call your doctor if: - Your temperature exceeds 101.5 F - You experience excessive pain or swelling - You have an unexpected reaction to medication - You have excessive bleeding - You experience continued vomiting/nausea - Your incision begins to separate - Your incision shows signs of infection such as increased redness, swelling, excessive pain, heat, or drainage (light blood or clear fluid is normal) 7. General instructions: No lifting greater than 5 lbs for 1 week and not more than 20lbs the next 3?weeks. No driving until seen at the office in 5-7 days after surgery. If you do not move your bowels in the next 2 days, please tell?Dr. Taylor. Please walk around your home every hour or two to prevent blood clots from forming in your legs. You do not need to wake from sleeping to walk. Please sleep in a bed or couch to prevent kinking at the hips and knees. Please take your incentive spirometer (your lung construction lineman) home with you and use it for the next few days to prevent pneumonia. You may shower, no hot tubs, baths or swimming pools.?Please follow the post op diet instructions you are?given by Dr Cheri banegas? and text me daily at 5-6pm for an update.?If you have any issues or concerns or questions please communicate this to him via text.? The Celebrate shakes have all of the bariatric vitamins you need if you consume these shakes. If you are drinking other protein shakes, you will need to purchase the Celebrate multivitamins and calcium that are available in the hospital gift shop on the first floor of the [facility].??Do not take anything without first discussing with Dr Taylor. Please make sure you are consuming at least 40 ounces of fluids per day starting the?day AFTER your discharge from the hospital. Always drink 1-2 ml per minute using the 5ml?syringe. If you drink faster you may experience?bloating,?gas pain, burping, nausea or heartburn. In that case please slow down your pace and use the syringe to?understand better the?proper?pace and volume of drinking. Do not hesitate to contact the office with any questions at . The patient's medical history has been reviewed and they are considered low risk for post op DVT and therefore DVT prophylaxis is not considered necessary. Travel after surgery was reviewed. The patient has not disclosed any travel plans during the first 30 days after surgery and they have been advised that within the first 30 days after surgery any bus, plane, train or car travel over 2 hours in duration is contraindicated due to the possibility of developing blood clots from immobility. Any travel, needs to include periods of ambulation of 10 minutes in duration every 2 hours. The patient was instructed to discuss any plans for travel during this period with their bariatric surgeon. Assessment: stable, post op sleeve gastrectomy
[2023-06-15 17:11] LABS: Hematocrit 42.9 % (37.0-47.0); Hemoglobin 13.6 g/dl (12.0-16.0)
[2023-06-15 17:22] LABS: Anion Gap 20 (12-20); Blood Urea Nitrogen 12 mg/dL (9-16); Calcium 9.2 mg/dL (8.4-10.2); Carbon Dioxide 18 mmol/L (22-29); Chloride 101 mmol/L (96-108); Estimated Glomerular Filt Rate > 60; Glucose Random 122 mg/dL (60-115); Potassium 3.8 mmol/L (3.3-5.1); Sodium 135 mmol/L (135-145)
[2023-06-15] MEDS: Lactated Ringers 1,000 ML 100 ML IVCONT (18:19)
--- NOTE | 2023-06-15 18:20 | P.PNGS_ITS ---
Subjective Subjective Date of Service: 06/16/23 Interval history: Feels well. Mild incisional pain. She is tolerating phase 1 bariatric diet Physical Exam 2 Vital Signs: Vital Signs: Last Vital Signs Temp 96.8 F 06/15/23 17:13 Pulse 90 06/15/23 17:13 Resp 18 06/15/23 17:13 BP 137/73 06/15/23 17:13 Pulse Ox 100 06/15/23 17:13 O2 Del Method Room Air 06/15/23 17:13 O2 Flow Rate 2 06/15/23 16:48 BMI result Body Mass Index 32.1 GI: Inspection: Yes normal to inspection, Yes incision (clean, dry and intact) and Yes obesity Palpation (GI): Soft to palpation Extrem: Right lower extremity: normal to inspection (no calf tenderness) L eft lower extremity: normal to inspection (no calf tenderness) Objective Data Active Medications Escitalopram Oxalate (Escitalopram Oxalate 20 Mg Tablet) 20 mg PO DAILY NIC Famotidine (Famotidine/Pf 20 Mg/2 Ml Vial) 20 mg IVPUSH BID NIC Hydromorphone HCl (Hydromorphone Hcl 0.5 Mg/0.5 Ml Syringe) 0.5 mg IVPUSH Q5M PRN; Protocol PRN Reason: Pain, Severe (Pain Scale 7-10) Last Admin: 06/15/23 16:47 Dose: 0.5 mg Documented By: PAWEL Lactated Ringer's (Lr) 1,000 mls @ 100 mls/hr IVCONT .Q10H [facility] Last Admin: 06/15/23 17:28 Dose: Not Given Documented By: RENAE Non-Admin Reason: Off Unit: Surgery Lactated Ringer's (Lr) 1,000 mls @ 100 mls/hr IVCONT .Q10H [facility] Last Admin: 06/15/23 18:19 Dose: 100 mls/hr Documented By: RENAE Cefazolin Sodium/Dextrose (Ancef) 2 gm in 50 mls @ 100 mls/hr IV POSTOP NIC Stop: 06/15/23 20:05 Acetaminophen (Ofirmev) 1,000 mg in 100 mls @ 16.7 mls/hr IV .Q6H NIC Lamotrigine (Lamotrigine 100 Mg Tablet) 100 mg PO BID NIC Lisinopril (Lisinopril 5 Mg Tablet) 5 mg PO DAILY NIC; Protocol Methadone HCl (Methadone Hcl 20 Mg/2 Ml Oral.Conc) 100 mg PO DAILY NIC Metoclopramide HCl (Metoclopramide Hcl 10 Mg/2 Ml Vial) 10 mg IVPUSH Q6H PRN PRN Reason: Nausea Ondansetron HCl (Ondansetron Hcl 4 Mg/2 Ml Vial) 4 mg IVPUSH ONCE PRN PRN Reason: Nausea and Vomiting Ondansetron HCl (Ondansetron Hcl 4 Mg/2 Ml Vial) 4 mg IVPUSH Q8H PRN PRN Reason: Nausea Sodium Chloride (0.9 % Sodium Chloride Flush 3 Ml Syringe) 3 ml IVFLUSH QSHIFT NIC Last Admin: 06/15/23 18:19 Dose: Not Given Documented By: RENAE Non-Admin Reason: IV Running Labs 06/16/23 05:16 06/16/23 05:16 Labs: Laboratory Results - last 24 hr 06/09/23 06/15/23 06/15/23 12:38 12:23 16:59 Anion Gap 20 Estim Creat Clear Calc 90.0 Estimated GFR > 60 Random Glucose 122 H Calcium 9.2 Urine Test NEGATIVE Blood Type A Negative Antibody Screen POSITIVE Antibody Identification Anti-D Crossmatch (AHG) See Detail Procedures Date of Service Date of Service: 06/16/23 Progress Note: A&P Assessment and plan (1) Obesity: Status: Acute Assessment and Plan: s/p laparoscopic sleeve gastrectomy, lysis of adhesions and gastropexy Doing well Will check am labs and if OK the patient will be discharged home (2) BMI 32.0-32.9,adult: Status: Acute (3) Anxiety: Status: Acute (4) Liver fibrosis: Status: Acute (5) S/P laparoscopic sleeve gastrectomy: Status: Acute (6) Hyperlipidemia: Status: Acute (7) Back pain: Status: Acute (8) Bipolar disorder: Status: Acute (9) Hypertension: Status: Acute (10) Opioid abuse: Status: Acute Time Spent With Patient Time: Total time managing care of this patient today ____ minutes. Quality Stroke Does the patient have a stroke diagnosis?: No VTE Prior VTE?: No VTE Risk Level:: Surgical - moderate VTE Device Contraindication: N/A - Device Ordered VTE Drug Contraindication: Treatment Not Indicated
[2023-06-15] MEDS: ceFAZolin Sodium/Dextrose,Iso 2 GM/50 ML PIGGYBACK IV (19:12)
[2023-06-15] MEDS: Acetaminophen 1,000 MG/100 ML PIGGYBACK 16.7 MG IV (19:40)
[2023-06-15] MEDS: Famotidine/PF 20 MG/2 ML VIAL IVPUSH (19:46)
[2023-06-15] MEDS: 0.9 % Sodium Chloride Flush 3 ML SYRINGE IVFLUSH (19:46)
[2023-06-15] MEDS: lamoTRIgine 100 MG TABLET PO (19:46)
[2023-06-16] MEDS: HYDROmorphone HCl 0.5 MG/0.5 ML SYRINGE 0.25 MG IVPUSH (00:09)
[2023-06-16] MEDS: Acetaminophen 1,000 MG/100 ML PIGGYBACK 16.7 MG IV ×2 (01:36→08:12)
[2023-06-16 03:32] VITALS: BP 122/65; PULSE 70; RESP 18; TEMP 36.9; O2SAT 96
[2023-06-16] MEDS: Lactated Ringers 1,000 ML 100 ML IVCONT (03:59)
[2023-06-16 05:26] LABS: MANUAL DIFF FLAG NO
[2023-06-16 05:37] LABS: Basophils Percent Auto 0.1 % (0-2); Hematocrit 38.8 % (37.0-47.0); Hemoglobin 12.3 g/dl (12.0-16.0); Imm Gran Abs Auto 0.03 X10*3/uL (0.00-0.03); Imm Gran Pct Auto 0.4 % (0.0-0.4); Lymphocytes Absolute Auto 0.7 X10*3/uL (1.2-4.9); Lymphocytes Percent Auto 10.8 % (20-40); Mean Corpuscular HGB Conc 31.7 g/dl (31.0-35.0); Mean Corpuscular Hemoglobin 26.5 pg (27.0-33.0); Mean Corpuscular Volume 83.6 fL (80.0-98.0); Mean Platelet Volume 10.9 fL (9.4-12.3); Monocytes Absolute Auto 0.2 X10*3/uL (0.1-1.2); Neutrophils Absolute Auto 5.8 x10*3/uL (2.0-8.3); Neutrophils Percent Auto 85.7 % (45-73); Platelet Count 195 X10*3/uL (160-400); Red Blood Count 4.64 X10*6/uL (4.20-5.50); Red Cell Distribution Width 12.2 % (11.0-16.0); White Blood Count 6.7 X10*3/uL (4.8-10.8)
[2023-06-16 06:02] LABS: Anion Gap 13 (12-20); Blood Urea Nitrogen 9 mg/dL (9-16); Calcium 8.7 mg/dL (8.4-10.2); Carbon Dioxide 23 mmol/L (22-29); Chloride 102 mmol/L (96-108); Creatinine Clr Calc Pharmacy 103.3; Estimated Glomerular Filt Rate > 60; Glucose Random 104 mg/dL (60-115); Sodium 134 mmol/L (135-145)
[2023-06-16] MEDS: lisinopriL 5 MG TABLET PO (06:30)
[2023-06-16 06:56] VITALS: BP 125/70; PULSE 83; RESP 16; TEMP 36.6; O2SAT 97
--- NOTE | 2023-06-16 07:15 | HE.PHANOTE ---
METHADONE CONFIRMATION FORM FROM [facility] [place]. PATIENT TAKES 100MG LAST DOSE 06/15
[2023-06-16] MEDS: Escitalopram Oxalate 20 MG TABLET PO (08:13)
[2023-06-16] MEDS: Famotidine/PF 20 MG/2 ML VIAL IVPUSH (08:13)
[2023-06-16] MEDS: lamoTRIgine 100 MG TABLET PO (08:13)
[2023-06-16] MEDS: methADONE HCl 20 MG/2 ML ORAL.CONC 100 MG PO (08:13)
--- NOTE | 2023-06-16 09:13 | MHC.CM.PN ---
Pt is from home self-care, lives with her fiance and daughter. Plan is to return home self-care. Patients fiance or mother will transport her home. Pt declined HCP at this time. PCP: Ravi Dyson
--- NOTE | 2023-06-16 09:50 | HO.POSTANES ---
Post Anesthesia Evaluation Post Anesthesia Evaluation Date of Service: 06/16/23 Vital Signs: Vital Signs Temp Pulse Resp BP Pulse Ox O2 Del Method 06/16/23 06:56 98 F 83 16 125/70 97 Room Air 06/16/23 03:32 98.4 F 70 18 122/65 96 Room Air 06/15/23 23:41 97.2 F 83 18 122/73 96 Room Air Anesthesia: General Endotracheal-GETA Mental Status: Awake Pain Control: Satisfactory Nausea/Vomiting: None Hydration: Adequate Anesthesia-Related Issues: No Anes. Related Issues
== END 2023-06-16 10:47 | disposition home or self-care (01) | DRG 403 ==
LOC: HO.SSSA 13:08 → HO.S3 16:05
PROVIDERS: Nurse Practitioner; Physician Assistant; Admitting Provider Surgery; PCP Internal Medicine; Visit Provider Surgery
PROC: 0DB64Z3 Excision of Stomach, Percutaneous Endoscopic Approach, Vertical (ICD-10-PCS; CPT 43845; principal; 2023-06-15 12:50)
DX: E66.01 Morbid (severe) obesity due to excess calories (principal); Q43.3 Congenital malformations of intestinal fixation; K74.00 Hepatic fibrosis, unspecified; M54.9 Dorsalgia, unspecified; F41.9 Anxiety disorder, unspecified; F32.A Depression, unspecified; E78.5 Hyperlipidemia, unspecified; I10 Essential (primary) hypertension; F11.20 Opioid dependence, uncomplicated; Z68.32 Body mass index [BMI] 32.0-32.9, adult; Z79.899 Other long term (current) drug therapy
CPT/HCPCS: 36415; 80048; 81025; 85014; 85018; 85025; 86850; 86870; 86885; 86900; 86901; 86920; 86922; 88304; 88305; 88307; 88342; A4649; C9088; C9145; J0131; J0690; J1100; J1170; J2250; J2405; J2550; J2795; J3010

== ENCOUNTER → 2023-06-15 12:28 | Outpatient (BNV) | payer MEDICAID, SELFPAY | PROVIDERS: Admitting Provider Surgery; PCP Internal Medicine; Visit Provider Surgery | DX: E66.9 Obesity, unspecified (principal); Z68.32 Body mass index [BMI] 32.0-32.9, adult; F41.9 Anxiety disorder, unspecified; K74.00 Hepatic fibrosis, unspecified; Z98.84 Bariatric surgery status; E78.5 Hyperlipidemia, unspecified; M54.9 Dorsalgia, unspecified; F31.9 Bipolar disorder, unspecified; I10 Essential (primary) hypertension; F11.10 Opioid abuse, uncomplicated | CPT/HCPCS: 43659; 43775; 99024; 99212 ==

== ENCOUNTER 2023-06-22 13:03 | Outpatient (AMB) | payer MEDICAID, SELFPAY ==
--- NOTE | 2023-06-22 13:25 | A.OFFVIS_ITS ---
Intake VS Expanded
--- NOTE | 2023-06-22 13:25 | MHC.OFFVISWM ---
Intake VS Expanded 06/22/23 13:59 BP 144/68 H Blood Pressure Location Rt brachial Blood Pressure Position Sitting Pulse 84 Pulse Source Pulse Oximeter Temp 97.9 F Temperature Source Tympanic Pulse Oximetry 99 Oxygen Delivery Method Room Air Height 5 ft 1.5 in Weight 168 lb 6.4 oz BMI 31.3 Body Fat % 45.0 Body Fat Mass 62.4 Fat Free Mass 105.8 Visceral Fat Rating 7.0 Body Water % 45.0 Body Water Mass 45.0 Muscle Mass/Score 100.6 Basal Metabolic Rate/Score 1,461 Intake Visit Reasons: (OV) 7 Days PO LSG 06/15/23 Consulting Sme Required: No Allergies No Known Allergies Allergy (Verified 06/22/23 13:39) Medication List - Last Reconciled 06/22/23 by [facility] albuterol sulfate 90 mcg/actuation (Ventolin HFA) 2 puffs inhalation Q4-6H PRN citalopram 40 mg PO DAILY lamotrigine (Lamictal) 100 mg PO BID lisinopril 5 mg PO DAILY methadone 100 mg PO DAILY pantoprazole 40 mg PO DAILY sucralfate 10 mL PO BID HPI HPI Comments History of Present Illness Details Patient is a pleasant 42-year-old female who returns to the office today, postop day 7., status post sleeve gastrectomy on 06/15/2023. She is tolerating celebrate 4 in 1 protein shakes, 3 with 1 scoop each. She is tolerating 45-50 oz of fluids daily. She has had bowel movement and reports no significant pain. [facility] Medical History BMI 32.0-32.9,adult Anxiety Hyperlipidemia Back pain Bipolar disorder Hypertension Surgical History Hx of laparoscopic partial gastrectomy Hx of melanoma excision Hx of hand surgery Hx of LASIK Hx of colonoscopy Hx of sigmoidoscopy Hx of section Hx of appendectomy Hx of tonsillectomy Family History Mother Hypertension Father Hypertension High cholesterol Daughter No problems noted. Social History Household Members: Children Housing: Condominium Are you a primary manager critical care to a significant other at home: No Do you presently have visiting nurse or other home services: No Alcohol intake: never Patient Tobacco Use Status: Never used Tobacco Cigarettes Per Day: 6 service: No Physical Exam GI Inspection: Yes incision (Clean, dry, intact.) Assessment & Plan Assessment & Plan (1) S/P laparoscopic sleeve gastrectomy: Code(s): Z98.84 - Bariatric surgery status Plan: POD 7 s/p LSG on 06/15/[address] Taylor Weight loss prior to surgery was 19.3 pounds or 10.1% TBWL. Original weight on 01/14/23 was 189.8 pounds and op weight was 170.5 pounds. Be sure to text Dr Taylor exactly 1 week after surgery your weight from your home scale so he can adjust your meal plan. Continue meal plan until f/u w Dulce in 2 weeks May shower, no submersion in bath for another week Continue abdominal binder with activity and exercise for the next 2 weeks. Exercise prior to surgery was walking and outdoor bike, may resume walking, states she is getting a stationary bike and may start that, wait 2 weeks for outdoor bike, No abdominal exercises for 6 weeks post operatively Will be emailed link to post op video for review Reminded of the pace of drinking, 2 mL per minute, 1 oz/15 min. Coding Level of Care Code Global (73911) Diagnoses S/P laparoscopic sleeve gastrectomy Z98.84
[2023-06-22 13:59] VITALS: BP 144/68; PULSE 84; TEMP 36.6; O2SAT 99; BMI 31.3
== END 2023-06-22 14:03 | disposition home or self-care (01) ==
PROVIDERS: PCP Internal Medicine; Visit Provider Physician Assistant Surgical
DX: E66.9 Obesity, unspecified (principal); Z68.31 Body mass index [BMI] 31.0-31.9, adult; Z90.3 Acquired absence of stomach [part of]; Z98.84 Bariatric surgery status
CPT/HCPCS: 99024

== ENCOUNTER → 2023-06-22 13:03 | Outpatient (BNVA) | payer MEDICAID, SELFPAY | PROVIDERS: PCP Internal Medicine; Visit Provider Physician Assistant Surgical ==

== ENCOUNTER → 2023-07-15 09:31 | Outpatient (BNVA) | payer MEDICAID, SELFPAY | PROVIDERS: PCP Internal Medicine; Visit Provider Dietitian, Registered | DX: E66.9 Obesity, unspecified (principal); Z68.29 Body mass index [BMI] 29.0-29.9, adult | CPT/HCPCS: 97803 ==

== ENCOUNTER → 2023-07-29 09:09 | Outpatient (BNVA) | payer MEDICAID, SELFPAY | PROVIDERS: PCP Internal Medicine; Visit Provider Dietitian, Registered | DX: E66.9 Obesity, unspecified (principal); Z68.29 Body mass index [BMI] 29.0-29.9, adult | CPT/HCPCS: 97803 ==

== ENCOUNTER 2023-12-03 09:32 | Outpatient (REF) | payer MEDICAID, SELFPAY ==
--- NOTE | ~2023-12-03 | US_ITS ---
EXAMINATION: US COMPLETE ABDOMEN WITH LIVER ELASTOGRAPHY CLINICAL INFORMATION: Hepatic fibrosis. COMPARISON: Abdominal ultrasound dated 05/11/2023. TECHNIQUE: Real-time imaging of the abdominal viscera. Noninvasive ultrasound liver fibrosis assessment is performed using Jaiden ElastPQ point quantification shear wave elastography (2D-SWE) with a C5-2 MHz transducer. Multiple elastography samples are obtained. FINDINGS: PANCREAS: Normal. The visualized pancreatic head and body are normal in appearance. The remainder of the pancreas is obscured from visualization by the overlying bowel gas. ABDOMINAL AORTA: The proximal, middle, and distal aortic segments are normal in caliber. INFERIOR VENA CAVA: Visualized portions are normal. LIVER: The liver demonstrates normal size, contour and echogenicity. No focal lesion or intrahepatic biliary duct dilatation. The right lobe measures 13.0 cm in length. The left lobe measures 10.2 cm in length. Portal flow is towards the liver (hepatopetal). Shear wave liver elastography median stiffness is 2.1 m/s (reference: normal median stiffness is 1.3 m/s or less). IQR/median stiffness to assess sampling precision is 0.06 (reference: good quality data set is IQR/median stiffness of 0.15 or less). GALLBLADDER: There is mild layering sludge. The gallbladder is physiologically distended without evidence of stones, polyps, wall thickening or pericholecystic fluid. COMMON BILE DUCT: Normal in caliber measuring 0.7 cm in diameter. RIGHT KIDNEY: There is a hypertrophic column of [place]. No hydronephrosis. No renal calculi or focal parenchymal lesions. The kidney measures 10.0 cm in maximum dimension. LEFT KIDNEY: Normal. No hydronephrosis. No renal calculi or focal parenchymal lesions. The kidney measures 10.6 cm in maximum dimension. SPLEEN: Normal. The spleen measures 9.3 cm in maximum dimension. FREE FLUID: None. US/US abdomen comp w elastography IMPRESSION: 1. Liver elastography: Measuremensts are consistent with compensated advanced chronic liver disease. When compared with prior exam, there is a statistically significant increase in liver stiffness (increase at least 10%). 2. There is mild biliary sludge. REFERENCE: Society of Radiologists in Ultrasound Liver Stiffness Thresholds (2019): LIVER STIFFNESS THRESHOLDS: *Liver Stiffness equal or less than 1.3 m/s: High probability of being normal. *Liver Stiffness less than 1.7 m/s: In the absence of other known clinical signs, rules out compensated advanced chronic liver disease. *Liver Stiffness 1.7-2.1 m/s: Suggestive of compensated advanced chronic liver disease but need further test for confirmation. *Liver Stiffness over 2.1 m/s: Rules in compensated advanced chronic liver disease. *Liver Stiffness over 2.4 m/s: Suggestive of clinically significant portal hypertension. QUALITY OF DATA SET: *IQR/Median value equal or less than 0.15 implies a quality data set. *IQR/Median value over 0.15 implies a poor quality data set. SIGNIFICANT CHANGE FROM PRIOR EXAM: Significant change if liver stiffness measurement is 10% or greater from prior exam. OTHER CONSIDERATIONS: The stage of liver fibrosis may be overestimated in the setting of acute hepatitis, liver inflammation, elevated liver function tests, hepatic vascular congestion, obstructive cholestasis, non-fasting state, and infiltrative diseases such as amyloidosis and lymphoma. In some patients with NAFLD, the liver stiffness thresholds for compensated advanced chronic liver disease may be lower. In causes other than viral hepatitis and NAFLD, liver stiffness thresholds are not well established.
== END 2023-12-03 09:33 | disposition home or self-care (01) ==
LOC: HO.US 09:32
PROVIDERS: PCP Internal Medicine; Visit Provider Surgery
DX: K74.00 Hepatic fibrosis, unspecified (principal); E66.9 Obesity, unspecified; I10 Essential (primary) hypertension
CPT/HCPCS: 76700; 76981

== ENCOUNTER 2024-05-17 13:25 | Outpatient (AMB) | payer OTHER, SELFPAY ==
--- NOTE | 2024-05-17 13:03 | A.OFFVIS_ITS ---
VS Expanded 05/17/24 13:05 Height 5 ft 1.5 in Weight 104 lb BMI 19.3 Intake Visit Reasons: TV PO LSG 06/15/23 Allergies No Known Allergies Allergy (Verified 06/22/23 13:39) Medication List - Last Reconciled 05/17/24 by SU Kaminski albuterol sulfate 90 mcg/actuation (Ventolin HFA) 2 puffs inhalation Q4-6H PRN citalopram 40 mg PO DAILY lamotrigine (Lamictal) 100 mg PO BID lisinopril 5 mg PO DAILY methadone 100 mg PO DAILY pantoprazole 40 mg PO DAILY sucralfate 10 mL PO BID HPI Comments Details: This?is a?43?yo female who is s/p LSG 06/15/2023. Presents for 11 month post op visit. Weight at last visit on 07/29/2023 was 156 pounds with a BMI of 29, weight today is 104 pounds (last weighed herself a few weeks ago in April), representing a [] pound weight loss with a BMI today of [].? Pt reports some night sweats, unpleasant body odor which is new. No abdominal pain, N/V, D/C, no blood in stools, has an IUD, no fevers. Present meal plan includes: anything - eating every hour scrambled eggs or pancakes or cereal protein bar chips watermelon Exercise: none PFSH Medical History BMI 32.0-32.9,adult Anxiety Hyperlipidemia Back pain Bipolar disorder Hypertension Surgical History Hx of laparoscopic partial gastrectomy Hx of melanoma excision Hx of hand surgery Hx of LASIK Hx of colonoscopy Hx of sigmoidoscopy Hx of section Hx of appendectomy Hx of tonsillectomy Family History Mother Hypertension Father Hypertension High cholesterol Daughter No problems noted. Social History Household Members: Children Housing: Condominium Are you a primary personal care aide to a significant other at home: No Do you presently have visiting nurse or other home services: No Alcohol intake: never Patient Tobacco Use Status: Never used Tobacco Cigarettes Per Day: 6 service: No Telehealth Telehealth Telehealth Platform: Telephone Location of provider rendering services: other Location of patient: address on file Patient Identification confirmed using: Name, : Yes Telehealth method: voice only Patient verbally consented to treatment: Yes Patient verbally consented to billing insurance company: Yes Patient informed of any privacy concerns related to visit: Yes Minutes spent on Phone/Video with Pt.: 16 Assessment & Plan Assessment & Plan (1) S/P laparoscopic sleeve gastrectomy: Code(s): Z98.84 - Bariatric surgery status Category: Medical Plan I am concerned with pt's rapid weight loss despite eating frequently high calorie foods. Will order full set of labs including some CA levels to investigate. She does not have any documented hx of cancer in her family. Was formerly a smoker. I also advised her to contact her PCP to let them know about her recent unexplained weight loss so that they can perform any workup/referrals they deem appropriate. In the meantime suggested prioritizing high protein and high fat options- smoothies with nut butters, high protein shakes/bars with added calories, avoid empty carbohydrates. Will contact pt once lab results are back and schedule next appt based on results. I spent a total of 30 minutes reviewing/updating records, examining the patient and counseling the patient on weight management as detailed above. Orders: Orders Insulin Today Z.84 - Bariatric surgery status Hemoglobin A1c Today Z.84 - Bariatric surgery status Complete Blood Count Auto Diff Today Z.84 - Bariatric surgery status IRON PROFILE Today Z.84 - Bariatric surgery status Comprehensive Met. Panel Today 84 - Bariatric surgery status Zinc Today Z98.84 - Bariatric surgery status TSH reflex Free T4 Today Z.84 - Bariatric surgery status Ferritin Today Z.84 - Bariatric surgery status Vitamin D 25-OH Total Today Z98.84 - Bariatric surgery status Carbohydrate Antigen 19-9 Today Z98.84 - Bariatric surgery status CA-125 Today Z98.84 - Bariatric surgery status Lipid Panel Today .84 - Bariatric surgery status Vitamin B12 and Folate Today Z98.84 - Bariatric surgery status C Reactive Protein Today Z.84 - Bariatric surgery status Vitamin B1 Today Z98.84 - Bariatric surgery status Vitamin A Today Z.84 - Bariatric surgery status Carcinoembryonic Antigen Today Z98.84 - Bariatric surgery status
[2024-05-17 13:05] VITALS: BMI 19.3
== END 2024-05-17 13:28 | disposition home or self-care (01) ==
LOC: HO.HBS 13:26
PROVIDERS: PCP Internal Medicine; Visit Provider Physician Assistant Surgical
DX: K91.2 Postsurgical malabsorption, not elsewhere classified (principal); Z90.3 Acquired absence of stomach [part of]; Z98.84 Bariatric surgery status
CPT/HCPCS: 99214; G2211

== ENCOUNTER → 2024-05-17 13:25 | Outpatient (BNVA) | payer OTHER, SELFPAY | PROVIDERS: PCP Internal Medicine; Visit Provider Physician Assistant Surgical | DX: Z98.84 Bariatric surgery status (principal) ==

== ENCOUNTER 2025-08-14 12:15 | Day surgery (SDC) | payer OTHER, SELFPAY ==
--- OUTSIDE RECORDS SUMMARY | 2025-08-03 14:32 | XMS_ITS | Patient Health Record ---
Author Organization [facility] Address [address] [place] [address] Care Team Providers Care Graduate Internship Name Role Phone SANDRA PETERSEN Primary Care Provider Sandy Salazar Unavailable [phone] Reason For Referral No Information Medications Medication SIG (Take, Route, Frequency, Duration) Notes Start Date End Date Status MetroGel-Vaginal 0.75 % 1 application at bedtime Vaginal q night for 5 nights then TWICE A WEEK; Duration: 60 days 05/07/2017 Active CeleXA 40 MG 1 Orally daily Preet-MJ 07/13/2012 A ctive LaMICtal 100 MG 1 tablet Orally Twice a day Active Adipex-P 37.5 MG 1 capsule Orally Once a day Active Kathe 13.5 MG Intrauterine Act fannie Social History Tobacco Use: Social History Observation Description Date Details (start date - stop date) Current Smoker NA - NA Tobacco Use/Smoking Question Answer Notes Are you a current smoker How many cigarettes a day do you smoke? 5 or les s How often do you smoke cigarettes? some days, bu t not every day Sexual History Question Answer Notes Had sex in the past 12 months (vaginal, oral, or anal)? Yes Prevention strategies discussed: Other with Men only Problems Problem Type SNOMED Code ICD Code Onset Dates Problem Status W/U Status Risk Notes Problem Urinary tract infectious disease (disorder) (05396760) Urinary tract infection, site not specified (599.0) Active confirmed Diag Plan Of Treatment Pending Test Test Name Order Date ONE SWAB 05/07/2017 Insurance Providers Payer Name Payer Address Payer Phone Subscriber Number Group Number Insured Name Patient Relationship to Insured Coverage Start Date Coverage End Date [employer] [address] [place], [place] [address] [phone] [id number] MAYA AZAR Self - patient is the insured Medical (General) History Medical History History ICD Code Urinary tract infection, site not specif ied N39.0 Emotional issues Surgical History Surgery Date(Month/Year) Tonsillectomy Appendectomy Colonoscopy Lasik Melanoma removal - Benign Labia Reduction with Dr. Jiang Hospitalization History Reason Date(Month/Year) See Surgical Hx
--- OUTSIDE RECORDS SUMMARY | 2025-08-03 14:32 | XMS_ITS | Clinical Summary ---
Author Organization [facility] Address [address] [place] [address] Care Team Providers Care Band Top Maker Name Role Phone Unavailable Primary Care Provider Unavailabl e Social History Tobacco Use Types Packs/Day Years Used Date Smoking Tobacco: Never Assessed Comments Unknown Sex and Gender Information Value Date Recorded Sex Assigned at Not on file Legal Sex Female 6:36 AM EST Gender Identity Not on file Sexual Orientation Not on file Plan of Treatment Health Maintenance Due Date Last Done Comments Breast Cancer Screening 1982 DTaP,Tdap,and Td Vaccines (1 - Tdap) 2001 Hepatitis B Vaccines (1 of 3 - 19+ 3-dose series) 2001 Cervical Cancer Screening: P ap Smear 12/25/2003 HPV Vaccines (1 - 3-dose SCD M series) 2009 Depression Screening 09/13/2024 COVID-19 Vaccine (1 - 2024-2 6 season) 2025 Influenza Vaccine (#1) 2025 RSV Immunization Adult Patie nts (1 - 1-dose 75+ series) 2057 HIB Vaccines Aged Out No longer eligi ble based on patient's age to complete this topic Hepatitis A Vaccines Aged Out No long er eligible based on patient's age to complete this topic IPV Vaccines Aged Out No longer eligi ble based on patient's age to complete this topic MMR Vaccines Aged Out No longer eligi ble based on patient's age to complete this topic Meningococcal ACWY Vaccine Aged Out N o longer eligible based on patient's age to complete this topic Meningococcal B Vaccine Aged Out No l onger eligible based on patient's age to complete this topic Pneumococcal Vaccine: Pediat rics (0 to 5 Years) and At-Risk Patients (6 to 49 Years) Aged Out No longer eligible b ased on patient's age to complete this topic RSV Immunization Patients Un navid 20 months Aged Out No longer eligible b ased on patient's age to complete this topic Varicella Vaccines Aged Out No longer eligible based on patient's age to complete this topic
--- OUTSIDE RECORDS SUMMARY | 2025-08-03 14:32 | XMS_ITS | Clinical Summary ---
Author Organization [facility] Address [address] [place] [address] Care Team Providers Care Desktop Support Engineer Name Role Phone Ravi Dyson Primary Care Provider [phone] Allergies No known active allergies Medications acetaminophen (TYLENOL) 325 mg tablet Take 650 mg by mouth every 6 hours as needed for pain, headache or fever. Active dicyclomine (BENTYL) 20 mg tablet Take 20 mg by mouth 4 times a day as needed (abdominal pain and diarrhea). Active cloNIDine (CATAPRES) 0.2 mg tablet Take 0.2 mg by mouth as needed for high blood pressure (Every 8 hrs for anxiety/ insomnia). Active ibuprofen (MOTRIN) 600 mg tablet Take 600 mg by mouth every 6 hours as needed for pain or fever. Active LORazepam (ATIVAN) 1 mg tablet Take 1 mg by mouth every 4 hours as needed for seizures or anxiety (withdrawal). Active melatonin 3 mg tablet Take 6 mg by mouth nightly as needed for sleep. Active methocarbamoL (ROBAXIN) 500 mg tablet Take 500 mg by mouth 4 times a day as needed for muscle spasms. Active metoclopramide (REGLAN) 10 mg tablet Take 10 mg by mouth 4 times a day as needed for nausea. Active hydrOXYzine (VISTARIL) 25 mg capsule Take 50 mg by mouth as needed for itching (every 8 hrs PRN for restlessness and anxiety). Active Social History Tobacco Use Types Packs/Day Years Used Date Smoking Tobacco: Never Smokeless Tobacco: Never Tobacco Cessation:Counseling Given: Not Answered Alcohol Use Standard Drinks/Week Comments Yes 0 (1 standard drink = 0.6 oz pur e alcohol) Comments Unknown Sex and Gender Information Value Date Recorded Sex Assigned at Female 01/18/2024 11:03 AM EDT Legal Sex Female 9:45 AM EDT Gender Identity Not on file Sexual Orientation Not on file Last Filed Vital Signs Vital Sign Reading Time Taken Comments Blood Pressure 114/69 01/19/2024 1:00 AM EDT Pulse 64 01/19/2024 1:00 AM EDT Temperature 36.7 C (98.1 F) 01/18/2024 10:00 PM EDT Respiratory Rate 18 01/19/2024 1:00 AM EDT Oxygen Saturation 99% 01/19/2024 1:00 AM EDT Inhaled Oxygen Concentration - - Weight 49.9 kg (110 lb) 01/18/2024 10:00 PM EDT Height 157.5 cm (5' 2 ) 01/18/2024 10:00 PM EDT Body Mass Index 20.12 01/18/2024 10:00 PM EDT Plan of Treatment Health Maintenance Due Date Last Done Comments Cervical Cancer Screening 1982 HIV Screening 1982 HPV and Pap Smear 1982 Pap Smear 1982 Varicella Vaccines (1 of 2 - 13+ 2-dose series) 12/25/1995 Hepatitis B Vaccines (1 of 3 - 19+ 3-dose series) 2001 Mammogram 2022 DTaP,Tdap,and Td Vaccines (1 - Tdap) 07/29/2023 07/28/2023 Alcohol/Substance Use Screening 09/13/2024 Influenza Vaccine (#1) 2025 07/28/2023 COVID-19 Vaccine (3 - 2024-2 6 season) 2025 02/19/2021, 01/29/2021 Pneumococcal Vaccine: Pediatric (0-5 Years) and At-Risk Patients (6-50 Years) Aged Out 05/26/2014 No longer eligible based on patient's age to complete this topic Insurance [employer] Care Teams Desktop Support Engineer Relationship Specialty Start Date End Date Ravi Dyson [address] [place] [address] PCP - General Internal Medicine 01/18/24
--- NOTE | 2025-08-08 10:17 | HO.ANESPROP2 ---
Documented by User: Charlene Aaron NP 08/08/25 10:18 HPI - Anesthesia Eval Consult details Narrative: 44yo F for Upper Endo Lopes s/p gastric sleeve 06/2023 with GA-ETT 7 PMFSH Active Problems Active Problems: All Active Problems S/P laparoscopic sleeve gastrectomy (Acute) Anxiety (Acute) Liver fibrosis (Acute) BMI 31.0-31.9,adult (Acute) BMI 33.0-33.9,adult (Acute) Obesity with body mass index (BMI) of 30.0 to 39.9 (Acute) BMI 34.0-34.9,adult (Acute) Bipolar disorder current episode depressed (Acute) Hyperlipidemia (Acute) Back pain (Acute) Bipolar disorder (Acute) Hypertension (Acute) BMI 35.0-35.9,adult (Acute) Obesity (Acute) Opioid abuse (Acute) Past Medical History Medical History BMI 32.0-32.9,adult Anxiety Hyperlipidemia Back pain Bipolar disorder Hypertension Family History Family History Mother Hypertension Father Hypertension High cholesterol Daughter No problems noted. Family history of problems with anesthesia: No Surgical History Surgical History Hx of laparoscopic partial gastrectomy Hx of melanoma excision Hx of hand surgery Hx of LASIK Hx of colonoscopy Hx of sigmoidoscopy Hx of section Hx of appendectomy Hx of tonsillectomy History of Problems with Anesthesia: No Social History Social History Household Members: Children Housing: Condominium Are you a primary clinical care manager to a significant other at home: No Do you presently have visiting nurse or other home services: No Alcohol intake: never Patient Tobacco Use Status: Never used Tobacco Cigarettes Per Day: 6 service: No Meds Allergies Allergy/AdvReac Type Severity Reaction Status Date / Time No Known Allergies Allergy Verified 06/22/23 13:39 Home Medications ?Medication ?Instructions ?Recorded ?Confirmed ?Last Taken ?Type citalopram 40 mg tablet 40 mg PO DAILY 01/28/23 08/14/25 Unknown History lamotrigine 100 mg tablet 100 mg PO BID 01/28/23 08/14/25 Unknown History (Lamictal) methadone 40 mg soluble tablet 27 mg PO DAILY 02/03/23 08/14/25 08/14/25 07:00 History albuterol sulfate 90 mcg/actuation 2 puff inhalation Q4-6H PRN 04/08/23 08/14/25 Unknown History aerosol inhaler (Ventolin HFA) Shortness Of Breath Assessment and Plan Assessment Anesthesia Assessment: Chart Reviewed Final Anesthetic Review Family History of Problems with Anesthesia: No History of Problems with Anesthesia: No Documented by User: Antonio Baker MD 08/14/25 16:58 PMFSH Past Medical History Medical History BMI 32.0-32.9,adult Anxiety Hyperlipidemia Back pain Bipolar disorder Hypertension Family History Family History Mother Hypertension Father Hypertension High cholesterol Daughter No problems noted. Surgical History Surgical History Hx of laparoscopic partial gastrectomy Hx of melanoma excision Hx of hand surgery Hx of LASIK Hx of colonoscopy Hx of sigmoidoscopy Hx of section Hx of appendectomy Hx of tonsillectomy Social History Social History Household Members: Children Housing: Condominium Are you a primary clinical care manager to a significant other at home: No Do you presently have visiting nurse or other home services: No Alcohol intake: never Patient Tobacco Use Status: Never used Tobacco Cigarettes Per Day: 6 service: No Meds Allergies Allergy/AdvReac Type Severity Reaction Status Date / Time No Known Allergies Allergy Verified 06/22/23 13:39 Home Medications ?Medication ?Instructions ?Recorded ?Confirmed ?Last Taken ?Type citalopram 40 mg tablet 40 mg PO DAILY 01/28/23 08/14/25 Unknown History lamotrigine 100 mg tablet 100 mg PO BID 01/28/23 08/14/25 Unknown History (Lamictal) methadone 40 mg soluble tablet 27 mg PO DAILY 02/03/23 08/14/25 08/14/25 07:00 History albuterol sulfate 90 mcg/actuation 2 puff inhalation Q4-6H PRN 04/08/23 08/14/25 Unknown History aerosol inhaler (Ventolin HFA) Shortness Of Breath Exam Airway Mallampati Class: II TM Dist: >3cm Neck ROM: Full Loose/Missing/Broken Teeth: Yes Assessment and Plan Assessment Anesthesia Assessment: Anesthesia Plan Discussed Final Anesthetic Review NPO: Yes ASA Class: II Final Preanesthetic Review: No Changes in Pt Med Stat, Meds/Allgs Chart Reviewed, Consent Obtained/Reviewed and Anes Risks/Benef Reviewed Patient Risk: Low Procedure Risk: Low Anesthetic Plan Anesthetic Plan: MAC: Disposition: Standard PACU
[2025-08-14 12:32] VITALS: BMI 21.5
[2025-08-14 12:46] LABS: UPreg QC Valid YES
[2025-08-14 12:48] VITALS: BP 122/73; PULSE 54; RESP 16; TEMP 36.4; O2SAT 99
[2025-08-14] MEDS: Lactated Ringers 1,000 ML 80 ML IVCONT (13:03)
--- NOTE | 2025-08-14 14:50 | MHC.SHP ---
Pre-Procedural Eval Section A - 24 Hr Update-Section A only Date of Service: 08/14/25 The patient is an INPATIENT: No The patient has been examined within 24 hours of the surgical procedure. The History & Physical has been completed within 30 days and I have reviewed it.: Yes Section B - Complete if H&P > 30 days Chief Complaint: gerd Relevant Family History (Specify if Yes): No Relevant Social History: None Present Medications: None Medical History: No relevant PMH History of Previous Operations: Relevant previous surgery/procedure and date(s) (S/p sleeve gastrectomy) Allergies: Allergies Allergy/AdvReac Type Severity Reaction Status Date / Time No Known Allergies Allergy Verified 06/22/23 13:39 Review of Systems Sugical H&P ROS: Negative: Constitution, Cardiovascular, Respiratory, Neurological, Psychiatric, Hem-Onc, Allergic/Immunologic, Gastrointestinal, Genitourinary, Musculoskeletal, Integumentary, Endocrine and Eyes/Ears/Nose/Throat Exam Surgical H&P Exam: Normal: HEENT, Normal: Heart, Normal: Lungs, Normal: Extremities, Normal: Abdomen, Normal: Skin and Normal: Neurological Plan Diagnosis/Plan: Unchanged (EGD with Lopes to assess etiology of GERD. Risks of bleeding and perforation were discussed with the patient and she is in agreement with the plan.) I have reviewed the history and physical and performed a pertinent physical examination on my patient. No changes have occurred unless specified. Time Spent With Patient Time: Total time managing care of this patient today ____ minutes.
--- NOTE | 2025-08-14 14:51 | PM.OP ---
Brief Operative Note Date of Service: 08/14/25 Pre-op diagnosis: GERD Post-op diagnosis: same Procedure: PROCEDURE DATE: 08/14/2025 PREOPERATIVE DIAGNOSIS: GERD POSTOPERATIVE DIAGNOSIS: ?Same as above. 1) esophagitis PROCEDURE: [id number] with biopsies and Lopes procedure Surgeon: ?Rubens Taylor M.D.. Ph.D. Traffic Circuit Engineer: None ? Anesthesia: IV sedation Estimated blood loss: ?Minimal FINDINGS AND PROCEDURE: ? OPERATIVE INDICATIONS: ?The patient is a 44 year old female who had a sleeve gastrectomy by me with excellent weight loss is complaining recently for persistent GERD despite use of PPIs. She admits that she has no meal plan. Based on this information I recommended an upper endoscopy with the Lopes procedure to evaluate the patient's symptoms and assess her GERD. Risks and complications of the surgery were discussed with the patient in advance particularly the possibility of perforation or bleeding that may require surgical intervention. The patient understood the risks and was in agreement with the plan. ? PROCEDURE: After informed consent was obtained by the patient, the patient was ?transferred to the Operating Room and was placed in the supine position.? After successful induction of IV sedation, a mouth block was inserted and the patient was placed in the left lateral decubitus position. An upper endoscopy was performed next, the oropharynx and esophagus appeared within the normal limits. There was no hiatal hernia. The z-line was irregular with tongues of gastric mucosa protruding into the esophagus.. Two biopsies were obtained from the distal esophagus 2-3 cm proximal to the GE junction and two additional biopsies from the GE junction. The stomach was entered. The sleeve was of even caliber without evidence of stenosis. There was no gastritis. There was no stricture or ulcer. A biopsy was obtained from the distal antrum. No significant bleeding was noted from any of the biopsy sites. Retroflexion of the scope showed some laxity at the GE junction. The scope was then advanced into the duodenum which appeared to be normal as well. At that point the duodenum ?and the stomach were decompressed and the scope was withdrawn to the GE junction. We measured 6 cm proximal from the GEJ and that was about 34cm from incisors. The scope was withdrawn from the mouth and the Lopes device was introduced to 34cm from incisors. The scope was re-introduced to confirm that the probe was in the esophagus and it was. The scope was withdrawn from the patient's mouth. Suction was connected to the device and was kept on for 45sec. At that point the device was deployed without difficulty and the remaining of the device was withdrawn from the patient's mouth without difficulty. The endoscope was re-introduced and I confirmed that the device was properly deployed in the esophagus at the intended location. At that point the scope was withdrawn from the patient's mouth and the procedure was ended. The patient extubated and was transferred in stable condition to the Recovery Room for further care. I was present and performed all steps of the procedure. There were no residents to assist with this case. Rubens Taylor M.D., Ph.D. Surgeon: Mohit Taylor MD Anesthesia: MAC Was an Traffic Circuit Engineer used for this Procedure?: No Estimated blood loss (mL): 0 IV fluids (mL): 400 Urine output (mL): 0 (No Trevino to record output) Pathology: other (1) antrum x1, 2) proximal sleeve x1, 3) GE junction x2, 4) distal esophagus x2) Condition: stable Disposition: PACU
[2025-08-14 15:35] VITALS: BP 106/49; PULSE 56; RESP 12; TEMP 36.1; O2SAT 97
[2025-08-14 15:45] VITALS: BP 102/57; PULSE 60; RESP 12; O2SAT 97
[2025-08-14 16:05] VITALS: BP 101/57; PULSE 55; RESP 14; O2SAT 97
[2025-08-14 16:20] VITALS: BP 117/74; PULSE 65; RESP 16; TEMP 37; O2SAT 100
== END 2025-08-14 16:47 | disposition home or self-care (01) ==
PROVIDERS: Nurse Practitioner; PCP Internal Medicine; Visit Provider Surgery
PROC: (CPT 43239; principal; 2025-08-14 14:30)
DX: K21.00 Gastro-esophageal reflux disease with esophagitis, without bleeding (principal); K22.89 Other specified disease of esophagus; Z90.3 Acquired absence of stomach [part of]; Z98.84 Bariatric surgery status; I10 Essential (primary) hypertension; E78.5 Hyperlipidemia, unspecified; M54.9 Dorsalgia, unspecified; F31.9 Bipolar disorder, unspecified; F41.9 Anxiety disorder, unspecified; Z85.820 Personal history of malignant melanoma of skin; Z79.899 Other long term (current) drug therapy; F11.20 Opioid dependence, uncomplicated
CPT/HCPCS: 43239; 81025; 88305; 88313; 88342; J2250; J2704

== ENCOUNTER → 2025-08-14 12:15 | Outpatient (BNV) | payer OTHER, SELFPAY | PROVIDERS: PCP Internal Medicine; Visit Provider Surgery | DX: K21.00 Gastro-esophageal reflux disease with esophagitis, without bleeding (principal); Z90.3 Acquired absence of stomach [part of]; Z98.84 Bariatric surgery status | CPT/HCPCS: 43239 ==